=== PATIENT | female | born 1955 | race Caucasian/White ===

== ENCOUNTER 2019-05-23 13:01 | Outpatient (CLI) | payer MEDICARE, OTHER, SELFPAY ==
[2019-05-23 13:21] LABS: Basophils Absolute Auto 0.05 K/mm3 (0.00-0.10); Basophils Percent Auto 0.7 % (0.0-1.0); Eosinophils Absolute Auto 0.02 K/mm3 (0.02-0.50); Eosinophils Percent Auto 0.3 % (1.0-6.0); Hematocrit 48.5 % (35.0-42.0); Immature Granulocyte Absolute 0.03 K/mm3 (0.00-0.00); Immature Granulocyte Percent A 0.4 % (0.0-0.0); Lymphocytes Absolute Auto 0.83 K/mm3 (1.10-4.50); Lymphocytes Percent Auto 12.2 % (18.0-42.0); Mean Corpuscular Hemoglobin 31.7 pg (27.0-31.0); Mean Platelet Volume 10.2 fl (9.2-11.8); Monocytes Absolute Auto 0.94 K/mm3 (0.10-0.90); Monocytes Percent Auto 13.8 % (2.0-11.0); Neutrophils Absolute Auto 4.9 K/mm3 (1.7-7.2); Neutrophils Percent Auto 72.6 % (50.0-70.0); Platelet Count Result 191 K/mm3 (150-420); Red Blood Count 5.05 M/mm3 (4.20-5.40); Red Cell Distribution Width 12.4 % (11.6-14.4); White Blood Count 6.8 K/mm3 (4.8-10.8)
[2019-05-23 13:39] LABS: Influenza Control Valid (Valid)
== END 2019-05-23 13:02 | disposition home or self-care (01) ==
LOC: CHSLAB 13:09
PROVIDERS: PCP Internal Medicine; Visit Provider Internal Medicine
DX: R05 Cough (principal); R50.9 Fever, unspecified
CPT/HCPCS: 36415; 85025; 87804

== ENCOUNTER 2019-05-30 14:47 | Outpatient (CLI) | payer MEDICARE, OTHER, SELFPAY ==
--- NOTE | ~2019-05-30 | XR_ITS ---
EXAMINATION: XR chest 2V 05/30/2019 15:18 INDICATION: Shortness of breath and chest pain PROCEDURE: 2 view chest COMPARISON: Comparison to multiple prior studies sequentially, with oldest reviewed study dated 11/28. FINDINGS: The lungs are clear. The cardiomediastinal silhouette is within normal limits. There are no pleural effusions. There is no pneumothorax suspected. IMPRESSION: 1: NO ACUTE CARDIOPULMONARY DISEASE. Reviewed, dictated and finalized at location A.
== END 2019-05-30 14:48 | disposition home or self-care (01) ==
LOC: CHSIMG 14:51
PROVIDERS: PCP Internal Medicine; Visit Provider Internal Medicine
DX: R06.02 Shortness of breath (principal); R07.9 Chest pain, unspecified
CPT/HCPCS: 71046

== ENCOUNTER 2019-10-20 09:56 | Outpatient (NON) | payer MEDICARE, OTHER, SELFPAY ==
[2019-10-20 20:40] LABS: SARS-CoV-2 RNA PCR Negative
== END 2019-10-20 09:57 ==
PROVIDERS: PCP Internal Medicine; Visit Provider Internal Medicine
DX: Z20.828 Contact with and (suspected) exposure to other viral communicable diseases (principal)
CPT/HCPCS: 87635; C9803; U0003

== ENCOUNTER 2019-11-28 08:42 | Outpatient (CLI) | payer MEDICARE, SELFPAY ==
[2019-11-28 08:56] LABS: Basophils Absolute Auto 0.03 K/mm3 (0.00-0.10); Basophils Percent Auto 0.5 % (0.0-1.0); Eosinophils Percent Auto 1.8 % (1.0-6.0); Hematocrit 44.7 % (35.0-42.0); Hemoglobin 14.8 g/dL (11.7-13.8); Immature Granulocyte Absolute 0.01 K/mm3 (0.00-0.00); Immature Granulocyte Percent A 0.2 % (0.0-0.0); Lymphocytes Absolute Auto 1.97 K/mm3 (1.10-4.50); Lymphocytes Percent Auto 34.9 % (18.0-42.0); Mean Corpuscular HGB Conc 33.1 g/dL (32.0-36.0); Mean Corpuscular Hemoglobin 31.3 pg (27.0-31.0); Mean Corpuscular Volume 94.5 fL (78.0-102.0); Mean Platelet Volume 9.8 fl (9.2-11.8); Monocytes Absolute Auto 0.52 K/mm3 (0.10-0.90); Monocytes Percent Auto 9.2 % (2.0-11.0); Neutrophils Percent Auto 53.4 % (50.0-70.0); Platelet Count Result 248 K/mm3 (150-420); Red Blood Count 4.73 M/mm3 (4.20-5.40); Red Cell Distribution Width 12.1 % (11.6-14.4); White Blood Count 5.7 K/mm3 (4.8-10.8)
[2019-11-28 09:04] LABS: Add Urine Microscopic? YES; Appearance Urine Clear (Clear); Bilirubin Urine Negative (Negative); Blood Urine Negative (Negative); Color Urine Yellow (Yellow); Glucose Urine UA Negative (Negative); Ketones Urine Negative (Negative); Leukocyte Esterase Ur 2+ LEU/UL (Negative); Nitrate Urine Negative (Negative); Protein Urine Negative (Negative); Specific Grav Ur 1.015 (1.010-1.020); Urobilinogen Urine 0.2 mg/dL (0.2-1.0); pH Urine 8.5 (5.0-8.0)
[2019-11-28 09:08] LABS: RBC Urine 0-2 /hpf (0-2); Squamous Epithelial Cell Urine Few /hpf (Few)
[2019-11-28 09:09] LABS: Bacteria Urine Trace /hpf
[2019-11-28 09:11] LABS: D Dimer 0.33 mg/L (0.19-0.50)
[2019-11-28 09:26] LABS: BNP 17.5 pg/mL (0-100)
[2019-11-28 09:46] LABS: Alanine Aminotransferase 40 U/L (14-59); Albumin Level 3.6 g/dL (3.4-5.0); Alkaline Phosphatase 100 U/L (46-116); Anion Gap 7 mmol/L (8-16); Aspartate Amino Transferase 22 U/L (15-37); Bilirubin,Total 0.6 mg/dL (0.00-1.00); Blood Urea Nitrogen 15 mg/dL (7-18); Calcium 9.4 mg/dL (8.5-10.1); Carbon Dioxide 32 mmol/L (21-32); Chloride 102 mmol/L (98-108); Estimated Glomerular Filt Rate > 60; Glucose 103 mg/dL (70-99); Osmolality Calculated 292 mOsm/kg (285-295); Potassium 4.4 mmol/L (3.5-5.1); Sodium 141 mmol/L (136-145); Total Protein 7.4 g/dL (6.4-8.2)
[2019-11-28 09:48] LABS: CRP < 0.2 mg/dL (0.0-0.9)
== END 2019-11-28 08:43 | disposition home or self-care (01) ==
LOC: CHSLAB 08:46
PROVIDERS: PCP Internal Medicine; Visit Provider Internal Medicine
DX: U07.1 COVID-19 (principal); R06.00 Dyspnea, unspecified; R53.83 Other fatigue; R82.90 Unspecified abnormal findings in urine
CPT/HCPCS: 36415; 80053; 81001; 83880; 84443; 85025; 85380; 86140; 87086

== ENCOUNTER 2020-09-07 15:19 | Emergency (ER) | payer MEDICARE, OTHER, SELFPAY ==
--- NOTE | ~2020-09-07 | XR_ITS ---
EXAMINATION: XR chest 2V EXAM DATE: 09/07/2020 16:25 INDICATION: Shortness of breath, symptoms 3 days. TECHNIQUE: Frontal and lateral projections of the chest obtained and reviewed. Comparison is made to prior examination from 05/30/2019. FINDINGS: The lungs are clear. There are no pleural effusions. The cardiomediastinal silhouette is within normal limits. There is no pneumothorax suspected. The bones and soft tissues are unremarkab le. IMPRESSION: No acute cardiopulmonary findings. Reviewed, dictated and finalized at location A.
[2020-09-07 15:30] VITALS: BP 163/80; PULSE 76; RESP 18; TEMP 36.6; O2SAT 99
--- NOTE | 2020-09-07 15:55 | ECG_ITS ---
Measurements Intervals [place] Rate: 75 P: 57 OK: 145 QRS: -17 QRSD: 99 T: 56 QT: 377 QTc: 422 Interpretive Statements SINUS RHYTHM POSSIBLE LEFT ATRIAL ENLARGEMENT INCOMPLETE RIGHT BUNDLE BRANCH BLOCK DELAYED PRECORDIAL R/S TRANSITION BASELINE WANDER- V4-V6 BORDERLINE ECG Electronically Signed On 09-07-2020 17:06:10 CDT by Phan Mcelroy D.O.
[2020-09-07 16:00] VITALS: BP 147/75; PULSE 68; RESP 16; O2SAT 100
--- NOTE | 2020-09-07 16:01 | ED.SOB ---
HPI - SOB/Dyspnea General Chief Complaint: Shortness of Breath/Dyspnea Stated Complaint: chest pain, trouble breathing Time Seen by Provider: 09/07/20 16:02 Source: patient and family Mode of arrival: ambulatory Limitations: no limitations History of Present Illness HPI Narrative: This nice lady has a history of myasthenia, and presents with increasing weakness. She was outside the house on Thursday, which is unusual for her. She started getting acutely weaker after she was outside about 5 minutes. She went back into the house, and improved somewhat over . She continues to feel weak today, and comes in due to increasing weakness to be evaluated. Weakness appears to likely be at least moderately severe and ongoing since Thursday. Nothing has really helped decrease the weakness much. MD elicited complaint: shortness of breath Pertinent past history: asthma Onset (ago): day(s) Context: recent illness Timing: constant Severity: moderate Exacerbating factors: exertion Relieving factors: rest Known history of: asthma and other (chest heaviness) Related Data Home Medications Medication Instructions Recorded Confirmed duloxetine 60 mg PO DAILY 09/07/20 09/07/20 fluticasone furoate-vilanterol 1 inh INHALATION DAILY 09/07/20 09/07/20 [Breo Ellipta] fluticasone propionate [Flovent 1 puff INHALATION PRN 09/07/20 09/07/20 HFA] montelukast 10 mg PO DAILY 09/07/20 09/07/20 pyridostigmine bromide 180 mg PO DAILY 09/07/20 09/07/20 Allergies Allergy/AdvReac Type Severity Reaction Status Date / Time codeine Allergy Intermediate Verified 05/02/13 10:54 albuterol Allergy Mild Verified 05/02/13 10:55 Sulfa (Sulfonamide Allergy Mild Unverified 10/15/16 16:38 Antibiotics) nortriptyline Allergy Unknown Verified 11/13/11 09:45 Penicillins Allergy Unknown Verified 11/13/11 09:45 ORANGES Allergy Unknown Uncoded 10/15/16 16:38 Review of Systems Constitutional: Constitutional: Reports fatigue and Reports weakness Eyes: Eyes: Reports no additional eye complaints ENT: Reports system reviewed and no additional complaints, except as documented Cardiovascular: Cardiovascular: Reports as per HPI and Reports no additional cardiovascular complaints Respiratory: Respiratory: Reports chest congestion Comments: chest heaviness Gastrointestinal: Gastrointestinal: Reports no additional gastrointestinal complaints Genitourinary: Genitourinary: Reports no additional female genitourinary complaints Musculoskeletal: Musculoskeletal: Reports no additional musculoskeletal complaints Integumentary/Breasts: Skin/Breast: Reports system reviewed and no additional complaints, except as docu Neurologic: Reports weakness Psychiatric: Psychiatric: Reports no additional psychiatric complaints Endocrine: Endocrine: Reports no additional endocrine complaints Hematologic/Lymphatic: Hematologic/Lymphatic: Reports no additional hematologic/lymphatic complaints Allergic/Immunologic: Allergic/Immunologic: Reports no additional allergic/immunologic complaints [facility] Past Medical History Medical History (Updated 09/07/20 @ 18:14 by Michael Man MD) Allergic rhinitis Asthma Myasthenia gravis Sleep apnea Vitamin D deficiency Family History Family History (Updated 10/05/15 @ 23:19 by DOCTOR UNKNOWN) Mother Family history of diabetes mellitus in first degree relative, Onset Age: 55 Father Malignant neoplasm of prostate Patient's father is Social History Social History (Updated 09/07/20 @ 16:52 by Michael Man MD) Smoking status: Never smoker Alcohol intake: never Living arrangements: with family Gender identity (if verbalized by the patient): Female Sexual Orientation (if Verbalized by the Patient): Straight or Heterosexual Exam Const: General: no acute distress and alert Orientation/consciousness: patient oriented x3 HENMT: Head: normal to inspection Ears: external e
[2020-09-07 16:50] LABS: Basophils Absolute Auto 0.06 K/mm3 (0.00-0.10); Basophils Percent Auto 0.7 % (0.0-1.0); Eosinophils Absolute Auto 0.03 K/mm3 (0.02-0.50); Eosinophils Percent Auto 0.4 % (1.0-6.0); Hematocrit 46.1 % (35.0-42.0); Hemoglobin 15.5 g/dL (11.7-13.8); Immature Granulocyte Absolute 0.03 K/mm3 (0.00-0.00); Immature Granulocyte Percent A 0.4 % (0.0-0.0); Lymphocytes Absolute Auto 2.13 K/mm3 (1.10-4.50); Lymphocytes Percent Auto 25.3 % (18.0-42.0); Mean Corpuscular HGB Conc 33.6 g/dL (32.0-36.0); Mean Corpuscular Hemoglobin 31.3 pg (27.0-31.0); Mean Corpuscular Volume 92.9 fL (78.0-102.0); Mean Platelet Volume 11.8 fl (9.2-11.8); Monocytes Absolute Auto 0.56 K/mm3 (0.10-0.90); Monocytes Percent Auto 6.7 % (2.0-11.0); Neutrophils Absolute Auto 5.6 K/mm3 (1.7-7.2); Neutrophils Percent Auto 66.5 % (50.0-70.0); Platelet Count Result 183 K/mm3 (150-420); Red Blood Count 4.96 M/mm3 (4.20-5.40); Red Cell Distribution Width 11.9 % (11.6-14.4); White Blood Count 8.4 K/mm3 (4.8-10.8)
[2020-09-07 16:50] LABS: Add Urine Microscopic? NO; Appearance Urine Clear (Clear); Bilirubin Urine Negative (Negative); Blood Urine Negative (Negative); Color Urine Light Yellow (Yellow); Glucose Urine UA Negative (Negative); Ketones Urine Negative (Negative); Leukocyte Esterase Ur Negative LEU/UL (Negative); Nitrate Urine Negative (Negative); Protein Urine Negative (Negative); Specific Grav Ur <= 1.005 (1.010-1.020); Urobilinogen Urine 0.2 mg/dL (0.2-1.0)
[2020-09-07 17:09] LABS: Lactic Acid Reflex 0.9 mmol/L (0.4-2.0)
[2020-09-07 17:15] LABS: Alanine Aminotransferase 35 U/L (14-59); Albumin Level 4.4 g/dL (3.4-5.0); Alkaline Phosphatase 112 U/L (46-116); Anion Gap 13 mmol/L (8-16); Aspartate Amino Transferase 25 U/L (15-37); Bilirubin,Total 0.4 mg/dL (0.00-1.00); Blood Urea Nitrogen 15 mg/dL (7-18); Calcium 9.9 mg/dL (8.5-10.1); Carbon Dioxide 27 mmol/L (21-32); Chloride 97 mmol/L (98-108); Estimated Glomerular Filt Rate > 60; Glucose 97 mg/dL (70-99); NT Pro B Type Natriuretic Pept 74 pg/mL (0-125); Osmolality Calculated 284 mOsm/kg (285-295); Potassium 3.9 mmol/L (3.5-5.1); Sodium 137 mmol/L (136-145); Total Protein 8.6 g/dL (6.4-8.2); Troponin I 5.5 ng/L (0.00-60.4)
[2020-09-07 17:16] LABS: Magnesium 2.2 mg/dL (1.8-2.4)
[2020-09-07 18:00] VITALS: BP 147/80; PULSE 81; RESP 17; O2SAT 100
--- NOTE | 2020-09-07 18:20 | PC.NURSE ---
formerly [facility] contacted at [phone] alcantara, formerly [facility], accepts patient. awaiting bed placement.
[2020-09-07 18:36] LABS: SARS-CoV-2 Ag Negative (Negative)
[2020-09-07 21:40] VITALS: BP 143/73; PULSE 71; RESP 16; O2SAT 100
== END 2020-09-07 21:50 | disposition short-term general hospital (02) ==
PROVIDERS: Emergency Provider Emergency Medicine; PCP Internal Medicine
DX: G70.00 Myasthenia gravis without (acute) exacerbation (principal); R06.02 Shortness of breath; Z20.822 Contact with and (suspected) exposure to COVID-19
CPT/HCPCS: 36415; 71046; 80053; 81003; 83605; 83735; 83880; 84484; 85025; 85380; 87040; 87426; 93005; 99285; C9803

== ENCOUNTER 2020-11-23 12:43 | Outpatient (CLI) | payer MEDICARE, OTHER, SELFPAY ==
--- NOTE | ~2020-11-23 | US_ITS ---
EXAMINATION: US thyroid EXAM DATE: 11/23/2020 13:10 INDICATION: Goiter. TECHNIQUE: Multiple grayscale and Doppler images of the thyroid were obtained (by a technologist who performed the scan) and subsequently reviewed. Individual nodules and recommendations may be reporte d in accordance with TI-RADS system as designated by the 2017 ACR White Paper TI-RADS committee. The re is no prior study for comparison. FINDINGS: Right there are lobe measures 4.5 x 1.4 x 1.1 cm, the left measuring 4.0 x 1.4 x 1.1 cm. Relatively h omogeneous thyroid echogenicity. There are several small thyroid nodules largest is category TR 4 dana suring 5 x 5 x 6 mm. IMPRESSION: Small thyroid nodules. Return to clinical follow-up and if additional palpable abnormal ity develops a repeat ultrasound can be obtained. Reviewed, dictated and finalized at location B. IMPRESSION: Small thyroid nodules. Return to clinical follow-up and if additi onal palpable abnormality develops a repeat ultrasound can be obtained.
== END 2020-11-23 12:44 | disposition home or self-care (01) ==
LOC: CHSIMG 12:44
PROVIDERS: PCP Internal Medicine; Visit Provider Internal Medicine
DX: E04.9 Nontoxic goiter, unspecified (principal)
CPT/HCPCS: 76536

== ENCOUNTER 2021-03-21 16:56 | Outpatient (CLI) | payer MEDICARE, OTHER, SELFPAY ==
--- NOTE | ~2021-03-21 | XR_ITS ---
XR chest 2V DATE: 03/21/2021 17:32 INDICATION: Shortness of breath and fever for 3 days TECHNIQUE: 2 views COMPARISON: 09/07/2020 PA and lateral chest FINDINGS: Status post cholecystectomy. Normal heart size. No hilar or mediastinal enlargement. No pulmonary infiltrate or consolidation, pleural effusion or pulmonary vascular congestion or pneumo thorax. IMPRESSION: No active cardiopulmonary disease Reviewed, dictated and finalized at location J. K CO[facility]
[2021-03-21 18:08] LABS: Influenza Control Valid (Valid)
== END 2021-03-21 16:57 | disposition home or self-care (01) ==
LOC: CHSLAB 17:00
PROVIDERS: PCP Internal Medicine; Visit Provider Nurse Practitioner Family
DX: J06.9 Acute upper respiratory infection, unspecified (principal); R50.9 Fever, unspecified
CPT/HCPCS: 71046; 87804

== ENCOUNTER 2021-03-22 14:09 | Outpatient (CLI) | payer MEDICARE, OTHER, SELFPAY ==
[2021-03-22] MEDS: FAMOTIDINE 20 MG TABLET PO (14:30)
[2021-03-22] MEDS: diphenhydrAMINE HCl CAP 25 MG CAPSULE PO (14:30)
[2021-03-22 14:57] VITALS: BMI 26.5
[2021-03-22 14:59] VITALS: BP 121/70; PULSE 68; RESP 14; TEMP 36.6; O2SAT 96
[2021-03-22] MEDS: ACETAMINOPHEN 325 MG TABLET 650 MG PO (15:03)
--- NOTE | 2021-03-22 15:04 | PC.NURSE ---
Patient here for Bamianivimab/Etesevimab IV infusion r/t being positive for covid and meeting high criteria risk. Education on medication given. No concerns voiced. PO pre meds and IV Bamianivimab/Etesevimab administered see MAY.
[2021-03-22 15:15] VITALS: BP 118/72; PULSE 70; RESP 14; TEMP 36.6; O2SAT 99
--- NOTE | 2021-03-22 15:16 | PC.NURSE ---
Infusion completed. Patient c/o scratchy throat and side lip numbness. Will observe for awhile. Drinking water well. No other complaints. VSS.
--- NOTE | 2021-03-22 15:37 | PC.NURSE ---
Patient reports scratchy throat and tingle in side mouth/lip went away. Patient states, I feel pretty good now. I'm ready to go. Safe exit of hospital. Son driving her home.
== END 2021-03-22 14:10 | disposition home or self-care (01) ==
LOC: CHSTREATRM 14:13
PROVIDERS: PCP Internal Medicine; Visit Provider Nurse Practitioner Family
DX: U07.1 COVID-19 (principal)
CPT/HCPCS: A9270; M0245; Q0245

== ENCOUNTER 2021-12-24 10:03 | Outpatient (CLI) | payer MEDICARE, SELFPAY ==
[2021-12-24 10:23] LABS: Basophils Absolute Auto 0.05 K/mm3 (0.00-0.10); Basophils Percent Auto 0.7 % (0.0-1.0); Eosinophils Absolute Auto 0.07 K/mm3 (0.02-0.50); Hematocrit 42.7 % (35.0-42.0); Hemoglobin 14.3 g/dL (11.7-13.8); Immature Granulocyte Absolute 0.03 K/mm3 (0.00-0.00); Immature Granulocyte Percent A 0.4 % (0.0-0.0); Lymphocytes Absolute Auto 2.07 K/mm3 (1.10-4.50); Lymphocytes Percent Auto 28.9 % (18.0-42.0); Mean Corpuscular HGB Conc 33.5 g/dL (32.0-36.0); Mean Corpuscular Hemoglobin 31.4 pg (27.0-31.0); Mean Corpuscular Volume 93.8 fL (78.0-102.0); Mean Platelet Volume 9.7 fl (9.2-11.8); Monocytes Absolute Auto 0.64 K/mm3 (0.10-0.90); Monocytes Percent Auto 8.9 % (2.0-11.0); Neutrophils Absolute Auto 4.3 K/mm3 (1.7-7.2); Neutrophils Percent Auto 60.1 % (50.0-70.0); Platelet Count Result 226 K/mm3 (150-420); Red Blood Count 4.55 M/mm3 (4.20-5.40); Red Cell Distribution Width 12.1 % (11.6-14.4); White Blood Count 7.2 K/mm3 (4.8-10.8)
[2021-12-24 10:39] LABS: Appearance Urine Clear (Clear); Bilirubin Urine Negative (Negative); Blood Urine Negative (Negative); Glucose Urine UA Negative (Negative); Ketones Urine Negative (Negative); Leukocyte Esterase Ur 1+ LEU/UL (Negative); Nitrate Urine Negative (Negative); Protein Urine Negative (Negative); Specific Grav Ur <= 1.005 (1.010-1.020); Urobilinogen Urine 0.2 mg/dL (0.2-1.0); pH Urine 6.5 (5.0-8.0)
[2021-12-24 10:46] LABS: Add Urine Microscopic? YES; Color Urine Light Yellow (Yellow); RBC Urine None seen /hpf (0-2); WBC Urine 0-3 /hpf (0-3)
[2021-12-24 10:47] LABS: Bacteria Urine Trace /hpf; Squamous Epithelial Cell Urine None seen /hpf (Few)
[2021-12-24 11:29] LABS: Alanine Aminotransferase 35 U/L (14-59); Albumin Level 3.9 g/dL (3.4-5.0); Alkaline Phosphatase 96 U/L (46-116); Anion Gap 7 mmol/L (8-16); Aspartate Amino Transferase 23 U/L (15-37); Bilirubin,Total 0.6 mg/dL (0.00-1.00); Blood Urea Nitrogen 15 mg/dL (7-18); Calcium 9.6 mg/dL (8.5-10.1); Carbon Dioxide 31 mmol/L (21-32); Chloride 101 mmol/L (98-108); Estimated Glomerular Filt Rate > 60; Glucose 99 mg/dL (70-99); Magnesium 2.2 mg/dL (1.8-2.4); NT Pro B Type Natriuretic Pept 59 pg/mL (0-125); Osmolality Calculated 288 mOsm/kg (285-295); Phosphorus 3.7 mg/dL (2.6-4.7); Potassium 4.3 mmol/L (3.5-5.1); Sodium 139 mmol/L (136-145); Thyroid Stimulating Hormone 2.27 uIU/mL (0.36-3.74); Total Protein 7.3 g/dL (6.4-8.2)
== END 2021-12-24 10:04 | disposition home or self-care (01) ==
LOC: CHSLAB 10:05
PROVIDERS: PCP Internal Medicine; Visit Provider Internal Medicine
DX: R00.2 Palpitations (principal); R55 Syncope and collapse; R01.1 Cardiac murmur, unspecified; R06.00 Dyspnea, unspecified; R82.90 Unspecified abnormal findings in urine
CPT/HCPCS: 36415; 80053; 81001; 83735; 83880; 84100; 84443; 85025; 87086; 87088

== ENCOUNTER 2022-01-27 14:34 | Outpatient (CLI) | payer MEDICARE, OTHER, SELFPAY ==
--- NOTE | 2022-01-27 01:00 | ECHO_ITS ---
Patient Info Name: Sonal Arrington Age: 66 years : 1955 Gender: Female Ht: 63 in Wt: 150 lbs BSA: 1.76 m2 HR: 80 bpm BP: 157 / 76 mmHg Heart Rhythm: Sinus Rhythm Technical Quality: Fair Exam Date: 01/27/2022 3:29 PM Exam Location: [facility] [place] Patient Status: Outpatient Admit Date: 01/27/2022 Staff Ordering Physician: Wm Bear MD Deployment Technician: Isela Smith RDCS Attending Provider: Wm Bear MD Exam Type: CA echo doppler color flow Study Info Indications - presyncope R01.1 - Cardiac murmur, unspecified R00.2 - Palpitations Complete two-dimensional, color flow and Doppler transthoracic echocardiogram is performed. Summary 1. Complete two-dimensional, color flow and Doppler transthoracic echocardiogram is performed. 2. Left ventricular chamber dimension is normal. 3. Left ventricular systolic function is hyperdynamic, estimated at >70%. 4. The left ventricular diastolic function is grade II diastolic dysfunction. 5. E/e' 12 is mildly elevated. 6. There is trace mitral valve regurgitation. 7. There is trace tricuspid valve regurgitation. 8. Mild pulmonary hypertension, estimated pulmonary arterial systolic pressure is 44 mmHg. 9. There is trace pulmonic regurgitation. Left Ventricle E/e' 12 is mildly elevated. Left ventricular chamber dimension is normal. Left ventricular systolic function is hyperdynamic, estimated at >70%. The left ventricular diastolic function is grade II diastolic dysfunction. Right Ventricle Right ventricular systolic function is normal and with normal TAPSE 2.1 cm. Right ventricular chamber dimension is normal. Left Atria Left atrial chamber dimension is normal. Right Atria Right atrial chamber dimension is normal. Aortic Valve The aortic valve is trileaflet. There is no aortic valve stenosis. There is no aortic valve regurgitation. Pulmonic Valve There is trace pulmonic regurgitation. Mitral Valve There is no mitral valve stenosis. There is trace mitral valve regurgitation. Tricuspid Valve There is trace tricuspid valve regurgitation. Mild pulmonary hypertension, estimated pulmonary arterial systolic pressure is 44 mmHg. Pericardium/Pleural There is no pericardial effusion. Inferior Vena Cava Normal inferior vena cava with >50% collapse upon inspiration consistent with normal right atrial pressure, 5 mmHg. Aorta The aortic root size at the sinus of Valsalva is normal. Left Ventricular Outflow Tract Name Value Normal LVOT 2D LVOT Diameter 2.0 cm LVOT Doppler LVOT Peak Velocity 144 cm/s LVOT Peak Gradient 8 mmHg LVOT Mean Gradient 4 mmHg LVOT VTI 27 cm LVOT VTI/AV VTI Ratio 0.8 LVOT Stroke Volume 87 ml Pulmonic Valve Name Value Normal RVOT Doppler ------
== END 2022-01-27 14:35 | disposition home or self-care (01) ==
PROVIDERS: PCP Internal Medicine; Visit Provider Internal Medicine
DX: R00.2 Palpitations (principal); R55 Syncope and collapse; R01.1 Cardiac murmur, unspecified
CPT/HCPCS: 93306

== ENCOUNTER 2022-01-28 11:19 | Outpatient (CLI) | payer MEDICARE, OTHER, SELFPAY ==
--- NOTE | 2022-02-28 11:39 | WPDHOLTEREM ---
Holter/Event Monitor Holter/Event Monitor Date of procedure: 01/28/22 Holter/Event Procedure: Event Monitor Indications: Palpitations Conclusion: 1. 28 days event monitor between 01/28/22-02/26/22. There are 323 available transmissions for analysis. 2. Underlying rhythm is sinus rhythm with sinus arrhythmia. HR range 50-131 bpm; average HR 68 bpm. 3. There are occasional premature supraventricular complexes with total burden of <1%. No supraventricular tachycardia. 4. There are occasional premature ventricular complexes with total burden of 1%. No ventricular tachycardia. 5. No significant pauses greater than 2 seconds. 6. Patient reports 313 episodes of symptoms of chest pain, shortness of breath, skipped beat, heart racing, lightheadedness, symptoms other than listed which demonstrate sinus rhythm HR range 63-131 bpm and 3 episodes with PAC's.
== END 2022-01-28 11:20 | disposition home or self-care (01) ==
LOC: CHSCARD 11:21
PROVIDERS: PCP Internal Medicine; Visit Provider Internal Medicine
DX: R00.2 Palpitations (principal); R55 Syncope and collapse; R01.1 Cardiac murmur, unspecified
CPT/HCPCS: 93270

== ENCOUNTER 2022-02-24 13:36 | Emergency (ER) | payer MEDICARE, OTHER, SELFPAY ==
--- NOTE | ~2022-02-24 | XR_ITS ---
Clinical Indication: Chest pain PA and lateral views of the chest: Comparison: 03/21/2021 Findings: The lungs are clear, without evidence of focal consolidation or pleural effusion. Cardiome diastinal silhouette is within normal limits. Bones and soft tissues are unremarkable. Impression: Normal chest. Reviewed, dictated and finalized at location . ERCIAL HOUSEKEEPER Impression: Normal chest.
--- NOTE | 2022-02-24 13:40 | ECG_ITS ---
Measurements Intervals [place] Rate: 92 P: 56 MT: 124 QRS: -32 QRSD: 94 T: 66 QT: 345 QTc: 428 Interpretive Statements SINUS RHYTHM POSSIBLE LEFT ATRIAL ENLARGEMENT [-0.1mV P-WAVE IN V1/V2] LEFT AXIS DEVIATION [QRS AXIS < -30] NONSPECIFIC ST SEGMENT ABNORMALITY COMPARED WITH 09/07/2020, MODEST ST SEGMENT DEPRESSION IS SEEN Electronically Signed On 02-24-2022 17:24:52 GENERAL SUPERVISOR by Chauncey Fabian M.D.
[2022-02-24 13:44] VITALS: BP 152/77; PULSE 87; RESP 16; TEMP 36.3; O2SAT 100
[2022-02-24 13:57] LABS: Basophils Absolute Auto 0.05 K/mm3 (0.00-0.10); Basophils Percent Auto 0.6 % (0.0-1.0); Eosinophils Absolute Auto 0.05 K/mm3 (0.02-0.50); Eosinophils Percent Auto 0.6 % (1.0-6.0); Hematocrit 40.3 % (35.0-42.0); Hemoglobin 13.6 g/dL (11.7-13.8); Immature Granulocyte Absolute 0.03 K/mm3 (0.00-0.00); Immature Granulocyte Percent A 0.3 % (0.0-0.0); Lymphocytes Absolute Auto 2.63 K/mm3 (1.10-4.50); Lymphocytes Percent Auto 30.3 % (18.0-42.0); Mean Corpuscular HGB Conc 33.7 g/dL (32.0-36.0); Mean Corpuscular Hemoglobin 31.2 pg (27.0-31.0); Mean Corpuscular Volume 92.4 fL (78.0-102.0); Mean Platelet Volume 9.8 fl (9.2-11.8); Monocytes Absolute Auto 0.74 K/mm3 (0.10-0.90); Monocytes Percent Auto 8.5 % (2.0-11.0); Neutrophils Absolute Auto 5.2 K/mm3 (1.7-7.2); Neutrophils Percent Auto 59.7 % (50.0-70.0); Platelet Count Result 239 K/mm3 (150-420); Red Blood Count 4.36 M/mm3 (4.20-5.40); Red Cell Distribution Width 11.9 % (11.6-14.4); White Blood Count 8.7 K/mm3 (4.8-10.8)
[2022-02-24 14:00] VITALS: O2SAT 100
[2022-02-24 14:11] LABS: Prothrombin Time 11.1 Seconds (9.50-12.10)
[2022-02-24 14:28] LABS: Alanine Aminotransferase 31 U/L (14-59); Albumin Level 3.7 g/dL (3.4-5.0); Alkaline Phosphatase 105 U/L (46-116); Anion Gap 7 mmol/L (8-16); Aspartate Amino Transferase 20 U/L (15-37); Bilirubin,Total 0.4 mg/dL (0.00-1.00); Blood Urea Nitrogen 16 mg/dL (7-18); Calcium 9.3 mg/dL (8.5-10.1); Carbon Dioxide 29 mmol/L (21-32); Chloride 101 mmol/L (98-108); Estimated Glomerular Filt Rate > 60; Glucose 156 mg/dL (70-99); Osmolality Calculated 288 mOsm/kg (285-295); Potassium 3.6 mmol/L (3.5-5.1); Sodium 137 mmol/L (136-145); Total Protein 7.5 g/dL (6.4-8.2)
[2022-02-24] MEDS: ASPIRIN 81 MG CHEWABLE TABLET 324 MG PO (15:00)
[2022-02-24 15:10] LABS: NT Pro B Type Natriuretic Pept 70 pg/mL (0-125)
[2022-02-24 15:24] LABS: D Dimer 0.23 mg/L (0.19-0.50)
[2022-02-24 15:40] VITALS: BP 146/88; PULSE 75; RESP 16; TEMP 36.4; O2SAT 98
--- NOTE | 2022-02-24 15:40 | ED.CHESTPAIN ---
HPI - Chest Pain General Chief Complaint: Chest Pain Stated Complaint: chest pain Time Seen by Provider: 02/24/22 13:36 History of Present Illness MD complaint: chest pain Onset (ago): day(s) (6) Timing of current episode: episodic Prior episodes: Yes Onset: during rest Pain location: left chest Pain radiation: none Severity: moderate Quality: sharp Relieving factors: nothing Exacerbating factors: nothing Associated symptoms: nausea and dyspnea Treatment prior to arrival: none Risk Factors Coronary artery disease risk factors: diabetes, smoking history, hyperlipidemia and hypertension Related Data Home Medications Medication Instructions Recorded Confirmed duloxetine 60 mg capsule,delayed 60 mg PO DAILY 09/07/20 02/24/22 release fluticasone furoate 200 1 inh inhalation DAILY 09/07/20 02/24/22 mcg-vilanterol 25 mcg/dose inhalation powder (Breo Ellipta) fluticasone propionate 110 1 puff inhalation PRN 09/07/20 02/24/22 mcg/actuation HFA aerosol inhaler (Flovent HFA) montelukast 10 mg tablet 10 mg PO DAILY 09/07/20 02/24/22 pyridostigmine bromide 180 mg 180 mg PO DAILY 09/07/20 02/24/22 tablet,extended release Allergies Allergy/AdvReac Type Severity Reaction Status Date / Time codeine Allergy Intermediate Anaphylaxis Verified 02/24/22 14:17 albuterol Allergy Mild Palpitation Verified 02/24/22 14:17 s Sulfa (Sulfonamide Allergy Mild Anaphylactic Unverified 02/24/22 14:17 Antibiotics) Shock nortriptyline Allergy Unknown Confusion Verified 02/24/22 14:17 Penicillins Allergy Unknown Anaphylactic Verified 02/24/22 14:17 Shock ORANGES Allergy Unknown Anaphylactic Uncoded 02/24/22 14:17 Shock Review of Systems Review of Systems: All systems reviewed & are unremarkable except as noted in HPI and below PMFSH Past Medical History Medical History (Updated 02/24/22 @ 15:41 by Michael Guzman MD) Allergic rhinitis Asthma Myasthenia gravis Sleep apnea Vitamin D deficiency Family History Family History (Updated 10/05/15 @ 23:19 by DOCTOR UNKNOWN) Mother Family history of diabetes mellitus in first degree relative, Onset Age: 55 Father Malignant neoplasm of prostate Patient's father is Social History Social History Smoking status: Never smoker Alcohol intake: never Gender identity (if verbalized by the patient): Female Sexual Orientation (if Verbalized by the Patient): Straight or Heterosexual Exam Const: General: healthy appearing, no acute distress and alert Nutritional Appearance: well nourished Orientation/consciousness: patient oriented x3 Limitations: no limitations HENMT: Head: normal to inspection Ears: external ears normal Face/Nose/Sinus: Normal external nose present Face and sinus: normal facial exam Mouth: Yes moist mucous membranes Eyes: Conjunctivae: conjunctivae normal Pupils: Equal, round and reactive pupils present EOM: EOMs intact bilaterally Neck: Neck: normal visual inspection Resp: Effort & Inspection: normal respiratory effort Auscultation: clear to auscultation bilaterally Cardio: Rate: regular rate Rhythm: regular rhythm GI: GI Palp: Yes Soft to palpation and No Tenderness to palpation present (GI) Auscultation: normal bowel sounds Back/Spine/Pelvis: Cervical Spine: cervical ROM normal Thoracic/Lumbar Spine: thoraco-lumbar ROM normal Skin: General skin exam: normal color Rashes: no rashes Neuro: General: patient oriented x3, moves all extremities, no focal motor deficits and CN's II-XI intact bilaterally Speech: normal speech Gait exam (Neuro): Normal gait present Extrem: General: normal to inspection and no clubbing, cyanosis or edema Psych: Mental Status: mental status grossly normal Affect: normal affect Attitude: cooperative Course Vital Signs Vital signs: Vital Signs Temperature 36.3 C L 02/24/22 13:44 Pulse Rate 87 02/24
== END 2022-02-24 15:40 | disposition home or self-care (01) ==
PROVIDERS: Emergency Provider Emergency Medicine; PCP Internal Medicine
DX: R07.89 Other chest pain (principal); R06.00 Dyspnea, unspecified
CPT/HCPCS: 36415; 71046; 80053; 83880; 84484; 85025; 85380; 85610; 93005; 99284; A9270

== ENCOUNTER 2022-10-08 01:17 | Day surgery (SDC) | payer MEDICARE, OTHER, SELFPAY ==
[2022-10-07 16:25] VITALS: BMI 26.9
[2022-10-08] VITALS (7 sets, daily range): BP systolic 105–167; BP diastolic 77–89; PULSE 74–87; RESP 13–22; TEMP 36.8; O2SAT 95–100; BMI 27.3
--- NOTE | 2022-10-08 11:26 | WPDHPUPDATE1 ---
History and Physical Update Update Date/Time: 10/08/22 11:26 Sonal Arrington is a 67 y.o. with several medical problems who has episodes of tachycardia with heart rates running in the 180s at home. Episodes of presyncope as well. Thirty day monitor was unrevealing. She is here for an implanted loop recorder. She has a poorly defined neurological disorder which is may be a variation of myasthenia gravis, with episodes of weakness and fatigue. history and Physical has been reviewed, including an updated exam of the patient. There are NO changes in the patient's condition. Risks, benefits, and alternatives have been discussed and questions answered. Patient agrees to proceed with procedure.
--- NOTE | 2022-10-08 11:29 | WPDMODSED ---
Moderate Sedation Note-Pt Data Patient Data Diagnosis: Presyncope, tachyarrhythmia Present Complaint: Episodes of weakness and presyncope, episodes of heart rate in the 180s Procedure to be performed/Plan: Implantation of a loop recorder under local anesthesia. Possible conscious sedation. Allergies Allergy/AdvReac Type Severity Reaction Status Date / Time codeine Allergy Intermediate Anaphylaxis Verified 10/08/22 10:58 Sulfa (Sulfonamide Allergy Mild Anaphylactic Verified 10/08/22 10:58 Antibiotics) Shock nortriptyline Allergy Unknown Confusion Verified 10/08/22 10:58 Penicillins Allergy Unknown Anaphylactic Verified 10/08/22 10:58 Shock tree nut Allergy Unknown Verified 10/08/22 10:58 ORANGES Allergy Unknown Anaphylactic Uncoded 10/08/22 10:58 Shock Home Medications Medication Instructions Recorded Confirmed Type duloxetine 60 mg capsule,delayed 60 mg PO DAILY 09/07/20 10/07/22 History release fluticasone furoate 200 1 inh inhalation DAILY 09/07/20 10/07/22 History mcg-vilanterol 25 mcg/dose inhalation powder (Breo Ellipta) fluticasone propionate 110 1 puff inhalation PRN 09/07/20 10/07/22 History mcg/actuation HFA aerosol inhaler (Flovent HFA) montelukast 10 mg tablet 10 mg PO DAILY 09/07/20 10/08/22 History pyridostigmine bromide 180 mg 180 mg PO DAILY 09/07/20 10/07/22 History tablet,extended release cholecalciferol (vitamin D3) 100 100 mcg PO DAILY 10/07/22 10/07/22 History mcg (4,000 unit) tablet levalbuterol HCl 0.63 mg/3 mL 0.63 mg inhalation PRN PRN Wheezing 10/07/22 10/07/22 History solution for nebulization omeprazole 20 mg tablet,delayed 20 mg PO DAILY 10/07/22 10/08/22 History release pyridostigmine bromide 60 mg tablet 60 mg PO Q4-5H 10/07/22 10/08/22 History Sedation/Anesthesia: No previous sedation/anesthesia problems (including family history). [facility] Past Medical History Medical History Allergic rhinitis Asthma Myasthenia gravis Sleep apnea Vitamin D deficiency Family History Family History Mother Family history of diabetes mellitus in first degree relative, Onset Age: 55 Father Malignant neoplasm of prostate Patient's father is Social History Social History Smoking status: Never smoker Second hand tobacco smoke exposure: No Alcohol intake: never Substance use: never Substance use type: does not use Living arrangements: with family Gender identity (if verbalized by the patient): Female Sexual Orientation (if Verbalized by the Patient): Straight or Heterosexual Spiritual care concerns: No Mod Sed Physical Exam Physical Exam Pre Procedural Exam: Normal: Appearance, Eyes, Ears, Nose, Neck, Throat, Airway, Lungs, Heart Size, Heart Rate, Heart Rhythm, Neuro Exam, Abdomen, Extremities and Skin Hours since solid foods: 12 Hours since liquid intake: 12 Mallampati Classification: class II Internal Medicine - PN: Obj Da Vital Signs Vital Signs: Vital Signs - 24 hr 10/08/22 10:30 Temperature 98.2 F Pulse Rate 82 Respiratory Rate 22 H Blood Pressure 105/82 Pulse Oximetry 100 Oxygen Delivery Room Air ASA Classification/Sedation ASA Classification/Sedation ASA Class: III Emergent: No Risks: Risks, benefits and alternatives explained and patient/family accepted plan for sedation. Patient re-evaluated immediately prior to sedation.
--- NOTE | 2022-10-08 11:58 | P.OPB_ITS ---
Procedure Note - Brief Procedure Note - Brief Date of procedure: 10/08/22 dizziness, tachycardia, near syncope Post-op diagnosis: Same Procedure performed: Implantation of a Medtronic loop recorder under local anesthesia Surgeon: Ifeoma Roberts MD Description of procedure: After sterile prep and drape of the left parasternal area, and using 1% lidocaine for local anesthesia, a Medtronic loop recorder was implanted along the left parasternal area. The incision was closed using 2-0 Vicryl suture and skin adhesive. Sterile dressing was applied. The patient tolerated the procedure well. Implants: Medtronic loop recorder LINQ II serial # [id number] Complications: No immediate complications Condition: Stable Disposition: Observation
--- NOTE | 2022-10-08 12:02 | P.OP_ITS ---
Procedure Note - Detailed Date of Procedure 10/08/22 Pre-op Diagnosis dizziness, tachycardia, near syncope Post-op Diagnosis Other (Status post loop recorder) Procedure Performed Implantation of a Medtronic loop recorder under local anesthesia Surgeon Ifeoma Roberts MD Anesthesia Local (18 mL of 1% lidocaine) Indications Sonal Arrington is a 67 y.o. female with several medical problems who has episodes of tachycardia with heart rates running in the 180s at home.? Episodes of presyncope as well.? Thirty day monitor was unrevealing.? She is here for an implanted loop recorder.? She has a poorly defined neurological disorder which is may be a variation of myasthenia gravis, with episodes of weakness and fatigue. Findings Normal sinus rhythm Description of Procedure After sterile prep and drape of the left parasternal area, and using 1% lidocaine for local anesthesia, a Medtronic loop recorder was implanted along the left parasternal area. The incision was closed using 2-0 Vicryl suture and skin adhesive. Sterile dressing was applied. The patient tolerated the procedure well. Implants Medtronic LINQ II serial # [id number] Estimated Blood Loss 1 (cc) Complications No immediate complications Condition Stable Disposition Observation
--- NOTE | 2022-10-08 12:27 | SUR.OPER ---
Discharge note: Patient received and verbalizes understanding of discharge instructions including procedural site care instructions and follow up appointment. Patient taken to husbands car via wheelchair.
== END 2022-10-08 12:29 | disposition home or self-care (01) ==
PROVIDERS: PCP Internal Medicine; Visit Provider Internal Medicine Cardiovascular Disease
PROC: (CPT 33285; principal; 2022-10-08 11:30)
DX: R55 Syncope and collapse (principal); R00.0 Tachycardia, unspecified
CPT/HCPCS: 33285; C1764

== ENCOUNTER 2022-10-15 13:17 | Inpatient (IN) | payer MEDICARE, OTHER, SELFPAY ==
[2022-10-15] VITALS (7 sets, daily range): BP systolic 149–182; BP diastolic 69–88; PULSE 66–91; RESP 14–21; TEMP 36.9–37.2; O2SAT 97–100
--- NOTE | ~2022-10-15 | XR_ITS ---
EXAMINATION: XR small bowel follow through DATE: 10/18/2022 10:24 INDICATION: Dysphagia TECHNIQUE: Assistant [employer] radiograph(s) of the abdomen was/were obtained. Oral contrast was administered, and sequential radiographs of the abdomen were obtained until oral contrast was noted to be in the proxi mal colon. COMPARISON: None. FINDINGS: The stomach has a normal appearance Transit time from the stomach to proximal colon was pk roximately 45 minutes. There is normal caliber and mucosal fold pattern throughout the small bowel. IMPRESSION: 1. Unremarkable small bowel follow-through. Reviewed, dictated and finalized at location A.
--- NOTE | ~2022-10-15 | US_ITS ---
EXAMINATION: US breast LT limited HISTORY: Cellulitis of the left breast TECHNIQUE: Limited left breast ultrasound was performed. FINDINGS: There is diffuse edema of the breast with areas of skin thickening. No suspicious cystic or solid mass is identified. There is no evidence of abscess. IMPRESSION: Left breast cellulitis without suspicious findings. BI-RADS Category 2: Benign finding(s). Reviewed, dictated and finalized at location A.
--- NOTE | ~2022-10-15 | XR_ITS ---
EXAMINATION: XR chest 1V portable Exam Date/Time: 10/16/2022 22:50 CDT HISTORY: rapid response call; airway concern Comparison: 02/24/2022. RESULT: Lines, tubes, and devices: None. Lungs and pleura: Clear. Cardiomediastinal silhouette: Stable. Somewhat nodular opacity over the right hilum, probably repres enting summation artifact from a confluence of pulmonary vessels. Other: No acute osseous or upper abdominal finding. IMPRESSION: No acute cardiopulmonary process. Somewhat nodular right hilar opacity, likely summation artifact. Consider PA and lateral views of the chest at full inspiration to evaluate persistence. Reviewed, dictated and finalized at location K. IMPRESSION: No acute cardiopulmonary process. Somewhat nodular right hilar opacity, likely summation artifact. Consider PA an d lateral views of the chest at full inspiration to evaluate persistence.
--- NOTE | ~2022-10-15 | XR_ITS ---
EXAMINATION: XR UGI w barium swallow DATE: 10/18/2022 09:59 INDICATION: Dysphagia TECHNIQUE: The patient drank thick barium. Fluoroscopy of the esophagus, stomach, and proximal small bowel was performed. Fluoroscopy exposure time was 1.3 minutes. The DAP for this procedure was 8.07 G ycm2. COMPARISON: None. FINDINGS: There is mild delayed emptying of the distal esophagus. There appears to be mild achalasia. There is no hiatal hernia. There was no gastroesophageal reflux with provocative maneuvers. The stom ach and proximal small bowel show normal folding patterns. IMPRESSION: 1. Mild delayed emptying of the distal esophagus with possible mild achalasia. Reviewed, dictated and finalized at location A.
--- NOTE | 2022-10-15 15:30 | ED.WOUNDLAC ---
HPI - Wound/Laceration General Chief Complaint: Wound/Laceration Stated Complaint: wound, infected loop recorder Time Seen by Provider: 10/15/22 15:21 History of Present Illness HPI narrative: Patient is a 67-year-old female with a history of myasthenia gravis presenting with a skin infection. Patient had a loop recorder placed last week due to symptomatic tachycardia. States that she has been on daily Levaquin since then. Unfortunately, the area around the site has become increasingly red and painful. She spoke with her retread technician who advised that she come to the ER for admission. The plan is to remove it tomorrow. Patient reports chills but no fevers. No vomiting. Denies further complaints. Related Data Home Medications Medication Instructions Recorded Confirmed duloxetine 60 mg capsule,delayed 60 mg PO DAILY 09/07/20 10/15/22 release fluticasone furoate 200 1 inh inhalation DAILY 09/07/20 10/15/22 mcg-vilanterol 25 mcg/dose inhalation powder (Breo Ellipta) montelukast 10 mg tablet 10 mg PO DAILY 09/07/20 10/15/22 pyridostigmine bromide 180 mg 180 mg PO DAILY 09/07/20 10/15/22 tablet,extended release cholecalciferol (vitamin D3) 100 100 mcg PO DAILY 10/07/22 10/15/22 mcg (4,000 unit) tablet levalbuterol HCl 0.63 mg/3 mL 0.63 mg inhalation PRN PRN Wheezing 10/07/22 10/15/22 solution for nebulization omeprazole 20 mg tablet,delayed 20 mg PO DAILY 10/07/22 10/15/22 release pyridostigmine bromide 60 mg tablet 60 mg PO Q4-5H 10/07/22 10/15/22 Allergies Allergy/AdvReac Type Severity Reaction Status Date / Time Sulfa (Sulfonamide Allergy Mild Anaphylactic Verified 10/15/22 14:52 Antibiotics) Shock nortriptyline Allergy Unknown Confusion Verified 10/15/22 14:52 Penicillins Allergy Unknown Anaphylactic Verified 10/15/22 14:52 Shock tree nut Allergy Anaphylaxis Verified 10/16/22 09:31 codeine AdvReac Mild Nausea Verified 10/16/22 09:31 [place]ell Allergy Severe Anaphylaxis Uncoded 10/16/22 09:31 ORANGES Allergy Unknown Anaphylactic Uncoded 10/16/22 09:31 Shock Review of Systems Review of Systems: All systems reviewed & are unremarkable except as noted in HPI and below PMFSH Past Medical History Medical History (Updated 10/16/22 @ 08:41 by Ifeoma Roberts MD) Allergic rhinitis Asthma Myasthenia gravis Obstructive sleep apnea treated with BiPAP Vitamin D deficiency Surgical History Surgical History (Updated 10/15/22 @ 17:09 by Fatoumata Phillips PA-C) History of bladder suspension procedure History of cholecystectomy History of hysterectomy History of loop recorder History of tonsillectomy History of tubal ligation Family History Family History Mother Family history of diabetes mellitus in first degree relative, Onset Age: 55 Father Malignant neoplasm of prostate Patient's father is Social History Social History (Updated 10/15/22 @ 17:37 by Fatoumata Phillips PA-C) Social History: Surrogate medical decision maker: Miko Arrington, spouse. Code status: Full code. Smoking status: Never smoker Second hand tobacco smoke exposure: No Alcohol intake: never Substance use: never Substance use type: does not use Lack of Transportation: No Lack of Food: Never True Current Housing: I Have Housing Concerned About Future Housing: No Difficulty Paying Gas/Electric Bills: No Difficulty Paying for Meds: No Currently Unemployed: No Education: Bachelor's Degree Difficulty w/ Childcare or Family Care: No Living arrangements: with family Spiritual care concerns: No Exam Narrative: GENERAL: Well-appearing, well-nourished, and in no acute distress. Pleasant and cooperative HEAD: Normocephalic, atraumatic. EYES: PERRLA and EOMI. ENT: Nares clear, no rhinorrhea or epistaxis. Mucous membranes moist. NECK: Supple. CHEST: No respiratory distress. left breast with
[2022-10-15 16:16] LABS: Basophils Percent Auto 0.5 % (0.2-1.2); Eosinophils Absolute Auto 0.2 K/mm3 (0-0.3); Eosinophils Percent Auto 2.1 % (0-4.4); Hemoglobin 13.5 g/dL (12.0-15.0); Immature Granulocyte Absolute 0.02 K/mm3 (0.00-0.031); Immature Granulocyte Percent A 0.2 % (0-0.5); Lymphocytes Absolute Auto 2.15 K/mm3 (0.9-3.2); Lymphocytes Percent Auto 26.8 % (18.3-44.2); Mean Corpuscular HGB Conc 32.9 g/dl (32-36); Mean Corpuscular Hemoglobin 30.7 pg (26-34); Mean Corpuscular Volume 93.2 fl (80-100); Mean Platelet Volume 9.8 fl (7.4-10.4); Monocytes Absolute Auto 0.7 K/mm3 (0.1-0.6); Monocytes Percent Auto 9.1 % (2.6-8.5); Neutrophils Absolute Auto 4.9 K/mm3 (1.3-6.7); Neutrophils Percent Auto 61.3 % (45.5-73.1); Platelet Count Result 243 k/mm3 (150-375); Red Cell Distribution Width 12.3 % (11.5-14.5)
[2022-10-15 16:25] LABS: Alanine Aminotransferase 34 U/L (6-35); Albumin Level 4.5 g/dL (3.5-5.1); Alkaline Phosphatase 104 U/L (38-126); Anion Gap -6 mmol/L (8-16); Aspartate Amino Transferase 36 U/L (14-36); Bilirubin,Total 0.4 mg/dL (0.2-1.3); Blood Urea Nitrogen 13 mg/dL (7-17); Calcium 9.3 mg/dL (8.4-10.2); Carbon Dioxide 31 mmol/L (22-30); Chloride 109 mmol/L (98-107); Estimated CRCL calculation 87 ml/min; Estimated Glomerular Filt Rate > 60; Glucose 90 mg/dL (65-110); Potassium 3.8 mmol/L (3.4-5.0); Sodium 134 mmol/L (137-145)
[2022-10-15 16:26] LABS: Lactic Acid Reflex 0.7 mmol/L (0.7-2.0)
[2022-10-15] MEDS: AZTREONAM 2 GM in SODIUM CHLORIDE 0.9% IV 100 ML 200 ML IVPB ×2 (16:34→22:10)
--- NOTE | 2022-10-15 17:04 | PM.IMHP ---
H&P: HPI History of Present Illness Date/Time: 10/15/22 16:30 Chief Complaint: Wound at site of recent loop recorder insertion. Narrative: This is a very pleasant 59-year-old female with myasthenia gravis, obstructive sleep apnea on BiPAP, and asthma who presented to the emergency department via private vehicle for evaluation of a wound at the site of her recent loop recorder insertion. The patient provides the following history. She recently wore a 30 day event monitor for evaluation of palpitations, dizziness, and near-syncope and had a loop recorder inserted on 10/08/2022. Several days thereafter she developed some redness around the insertion site and she was started on levofloxacin on Thursday for suspected infection. Unfortunately the redness has continued to spread and she now has pain and swelling onto the left breast. She has not been running fever but does endorse chills and sweats. She has not noticed any drainage from the wound however it was glued. She has no known history of MRSA. Vital signs were stable on arrival. Labs were pretty unremarkable though sodium was a bit low at 134. She was started on aztreonam and vancomycin in the ED and she is being admitted in this setting. Review of Systems Review of Systems: Twelve systems were reviewed. No recent cold or flu symptoms. No chest pain or shortness a breath. She has frequent episodes of palpitations and tachycardia. Occasional near-syncope but no syncope. Denies pleuritic pain. No lower extremity edema or calf pain. No nausea or vomiting. Reports intermittent dysphagia and occasional voice changes when over exerting. Not unusual for her to have lid lag, all related to the myasthenia. None of the symptoms are worse than normal. Except as documented, all other systems were reviewed and are negative. [facility] Past Medical History Medical History (Updated 10/15/22 @ 17:44 by Fatoumata Phillips PA-C) Allergic rhinitis Asthma Myasthenia gravis Obstructive sleep apnea treated with BiPAP Vitamin D deficiency Surgical History Surgical History (Updated 10/15/22 @ 17:09 by Fatoumata Phillips PA-C) History of bladder suspension procedure History of cholecystectomy History of hysterectomy History of loop recorder History of tonsillectomy History of tubal ligation Family History Family History Mother Family history of diabetes mellitus in first degree relative, Onset Age: 55 Father Malignant neoplasm of prostate Patient's father is Social History Social History (Updated 10/15/22 @ 17:37 by Fatoumata Phillips PA-C) Social History: Surrogate medical decision maker: Miko Arrington, spouse. Code status: Full code. Smoking status: Never smoker Second hand tobacco smoke exposure: No Alcohol intake: never Substance use: never Substance use type: does not use Living arrangements: with family Spiritual care concerns: No Meds Home Medications and Allergies Home Medications Medication Instructions Recorded Confirmed Type duloxetine 60 mg capsule,delayed 60 mg PO DAILY 09/07/20 10/07/22 History release fluticasone furoate 200 1 inh inhalation DAILY 09/07/20 10/07/22 History mcg-vilanterol 25 mcg/dose inhalation powder (Breo Ellipta) fluticasone propionate 110 1 puff inhalation PRN 09/07/20 10/07/22 History mcg/actuation HFA aerosol inhaler (Flovent HFA) montelukast 10 mg tablet 10 mg PO DAILY 09/07/20 10/08/22 History pyridostigmine bromide 180 mg 180 mg PO DAILY 09/07/20 10/07/22 History tablet,extended release cholecalciferol (vitamin D3) 100 100 mcg PO DAILY 10/07/22 10/07/22 History mcg (4,000 unit) tablet levalbuterol HCl 0.63 mg/3 mL 0.63 mg inhalation PRN PRN Wheezing 10/07/22 10/07/22 History solution for nebulization omeprazole 20 mg tablet,delayed 20 mg PO DAILY 10/07/22 10/08/22 History release pyridostigmine bromide 60 mg tab
[2022-10-15] MEDS: VANCOMYCIN 1,000 MG/NS 250 ML BAG 250 MG IVPB (17:15)
[2022-10-15] MEDS: ACETAMINOPHEN 325 MG TABLET 650 MG PO (18:26)
--- NOTE | 2022-10-15 20:32 | ADMGEN ---
This patient, Sonal Arrington, was admitted to [facility] Surg Room 309-01. Patient/family oriented to hospital policies and general routines including ID bracelet, bed and alarms, visiting hours, pain management, procedures, bathroom and other care routines, personal items, smoking policy, room service/diet, and visiting hours. Information on how to activate the Rapid Response Team has been discussed. Patient/Family are encouraged to report perceived risks to care and to ask questions if they do not understand what they are told or what they should do.
[2022-10-15] MEDS: diphenhydrAMINE HCl CAP 25 MG CAPSULE PO (23:29)
[2022-10-16] VITALS (16 sets, daily range): BP systolic 93–141; BP diastolic 49–87; PULSE 55–74; RESP 12–20; TEMP 36.4–37.4; O2SAT 95–100
[2022-10-16] MEDS: ACETAMINOPHEN 325 MG TABLET 650 MG PO (03:20)
[2022-10-16] MEDS: VANCOMYCIN 1,000 MG/NS 250 ML 1,000 MG/250 ML BAG 250 MG IVPB ×2 (05:11→16:45)
[2022-10-16] MEDS: AZTREONAM 2 GM in SODIUM CHLORIDE 0.9% IV 100 ML 200 ML IVPB ×3 (06:14→21:56)
[2022-10-16] MEDS: pyRIDostigmine bromide 60 MG TABLET PO (06:16)
[2022-10-16 06:17] LABS: Basophils Absolute Auto 0.1 K/mm3 (0.0-0.1); Basophils Percent Auto 0.9 % (0.2-1.2); Eosinophils Absolute Auto 0.3 K/mm3 (0-0.3); Eosinophils Percent Auto 3.8 % (0-4.4); Hematocrit 43.1 % (37.0-47.0); Hemoglobin 13.9 g/dL (12.0-15.0); Immature Granulocyte Absolute 0.02 K/mm3 (0.00-0.031); Immature Granulocyte Percent A 0.3 % (0-0.5); Lymphocytes Absolute Auto 1.98 K/mm3 (0.9-3.2); Lymphocytes Percent Auto 30.3 % (18.3-44.2); Mean Corpuscular HGB Conc 32.3 g/dl (32-36); Mean Corpuscular Hemoglobin 30.4 pg (26-34); Mean Corpuscular Volume 94.3 fl (80-100); Mean Platelet Volume 9.9 fl (7.4-10.4); Monocytes Absolute Auto 0.8 K/mm3 (0.1-0.6); Monocytes Percent Auto 12.7 % (2.6-8.5); Neutrophils Absolute Auto 3.4 K/mm3 (1.3-6.7); Platelet Count Result 236 k/mm3 (150-375); Red Blood Count 4.57 M/mm3 (4.2-5.4); Red Cell Distribution Width 12.4 % (11.5-14.5); White Blood Count 6.5 K/mm3 (4.5-10.0)
[2022-10-16 06:31] LABS: Anion Gap -9 mmol/L (8-16); Blood Urea Nitrogen 13 mg/dL (7-17); Calcium 9.3 mg/dL (8.4-10.2); Carbon Dioxide 32 mmol/L (22-30); Chloride 111 mmol/L (98-107); Estimated CRCL calculation 87 ml/min; Estimated Glomerular Filt Rate > 60; Glucose 98 mg/dL (65-110); Magnesium 2.2 mg/dL (1.6-2.3); Potassium 4.1 mmol/L (3.4-5.0); Sodium 134 mmol/L (137-145)
--- NOTE | 2022-10-16 07:43 | PM.CNCAR ---
Assessment and Plan Assessment and plan (1) Cellulitis of left breast: Code(s): N61.0 - Mastitis without abscess Status: Acute Assessment and Plan: Cellulitis of left breast near and including loop recorder site. No h/o metal allergy, so likely an infecton. Fortunately no fever or eleated WBC. On IV antibiotics. --Rec explant of loop recorder. --No plans for re-implant (2) Status post placement of implantable loop recorder: Code(s): Z95.818 - Presence of other cardiac implants and grafts Status: Acute Assessment and Plan: Loop recorder implanted last week for sx of presyncope and episodes of tachycardia, HR 180's at home. (3) Myasthenia gravis: Code(s): G70.00 - Myasthenia gravis without (acute) exacerbation Status: Acute Assessment and Plan: H/O myasthenia gravis or similar neuromuscular disease. Not clearly defined. (4) Tachycardia: Code(s): R00.0 - Tachycardia, unspecified Status: Acute Assessment and Plan: Episodes of tachycardia HR up to 180 per pt. Also episodes of presyncope. 30 day event monitor performed w/o sigificant arrhythmias, but pt did not have these typcal sx during recording. S/p loop recorder implant last week. Will explant today. NO plans for re-implantation; prob repeat the 30 dy monitor at a later date. History of Present Illness History of Present Illness Consult date/time: 10/16/22 07:43 Reason For Visit: Infected Loop Recorder Narrative: Sonal Arrington is a 67-year-old female whom we were asked to see at the request of Fatoumata ELIZABETH for our advice and opinion regarding the apparent infection at the loop recorder site, in consultation. Ms. Arrington has had episodes of near syncope, and episodes of tachycardia where she finds her heart rate to 180. A 30 day event monitor did reveal any significant arrhythmias but she had none of these typical symptoms during that time. She had an implantable loop recorder placed last week for further evaluation. On Thursday she came to the office for an incision check she had some surrounding erythema. She was started on antibiotic, Levaquin, but yesterday when she returned she had progressive erythema and pain of the incision and left breast area. She was admitted and started on vancomycin and aztreonam. She has not had any fevers, chills, shortness of breath, etc. Ms. Arrington has a neuromuscular disorder which is apparently myasthenia gravis or a similar neuromuscular disorder, and progressive weakness and episodes or spells of gasping and loss of motor tone related this. Review of Systems Constitutional: Constitutional: Reports fatigue, Denies fever(s) and Reports lethargy Eyes: Eyes: Reports no additional eye complaints ENT: Denies epistaxis Cardiovascular: Cardiovascular: Denies chest pain, Denies pedal edema, Reports lightheadedness and Denies dyspnea Respiratory: Respiratory: Denies chest congestion and Denies dyspnea Gastrointestinal: Gastrointestinal: Denies abdominal pain and Denies hematochezia Genitourinary: Genitourinary: Reports no additional female genitourinary complaints Musculoskeletal: Musculoskeletal: Reports no additional musculoskeletal complaints Integumentary/Breasts: Skin/Breast: Reports system reviewed and no additional complaints, except as docu Neurologic: Denies behavioral changes Comments: Myasthenia episodes manifest as episodes of gasping, loss of motor tone, sumanth if her left clavicle is touched. Weakness and fatigue, progressive through the day. Psychiatric: Psychiatric: Denies behavioral changes [facility] Past Medical History Medical History (Updated 10/16/22 @ 08:41 by Ifeoma Roberts MD) Allergic rhinitis Asthma Myasthenia gravis Obstructive sleep apnea treated with BiPAP Vitamin D deficiency Surgical History Surgical History (Updated 10/15/22 @ 17:09 by Fatoumata Phillips PA-C) History of bladder suspension
--- NOTE | 2022-10-16 07:47 | WPDHPUPDATE1 ---
History and Physical Update Update Date/Time: 10/16/22 07:47 History and Physical has been reviewed, including an updated exam of the patient. There are NO changes in the patient's condition. Risks, benefits, and alternatives have been discussed and questions answered. Patient agrees to proceed with procedure.
--- NOTE | 2022-10-16 07:47 | WPDMODSED ---
Moderate Sedation Note-Pt Data Patient Data Diagnosis: Infected loop recorder side, cellulitis Present Complaint: episodes syncope, episodes of tachycardia, neuromuscular disorder possible myasthenia gravis. Loop recorder implanted last week, found have surrounding erythema on Thursday and started on antibiotics, seen yesterday in the office with worsening erythema, admitted with cellulitis and infected loop recorder site. The patient is here for a loop recorder explant. Procedure to be performed/Plan: Possible conscious sedation explant of loop recorder Allergies Allergy/AdvReac Type Severity Reaction Status Date / Time codeine Allergy Intermediate Anaphylaxis Verified 10/15/22 14:52 Sulfa (Sulfonamide Allergy Mild Anaphylactic Verified 10/15/22 14:52 Antibiotics) Shock nortriptyline Allergy Unknown Confusion Verified 10/15/22 14:52 Penicillins Allergy Unknown Anaphylactic Verified 10/15/22 14:52 Shock tree nut Allergy Unknown Verified 10/15/22 14:52 ORANGES Allergy Unknown Anaphylactic Uncoded 10/15/22 14:52 Shock Home Medications Medication Instructions Recorded Confirmed Type duloxetine 60 mg capsule,delayed 60 mg PO DAILY 09/07/20 10/15/22 History release fluticasone furoate 200 1 inh inhalation DAILY 09/07/20 10/15/22 History mcg-vilanterol 25 mcg/dose inhalation powder (Breo Ellipta) montelukast 10 mg tablet 10 mg PO DAILY 09/07/20 10/15/22 History pyridostigmine bromide 180 mg 180 mg PO DAILY 09/07/20 10/15/22 History tablet,extended release cholecalciferol (vitamin D3) 100 100 mcg PO DAILY 10/07/22 10/15/22 History mcg (4,000 unit) tablet levalbuterol HCl 0.63 mg/3 mL 0.63 mg inhalation PRN PRN Wheezing 10/07/22 10/15/22 History solution for nebulization omeprazole 20 mg tablet,delayed 20 mg PO DAILY 10/07/22 10/15/22 History release pyridostigmine bromide 60 mg tablet 60 mg PO Q4-5H 10/07/22 10/15/22 History Current Medications: Active Medications Acetaminophen (Acetaminophen 325 Mg Tablet) 650 mg PO Q6H PRN PRN Reason: Mild Pain (1-3) or Fever Last Admin: 10/16/22 03:20 Dose: 650 mg Diphenhydramine HCl (Diphenhydramine Hcl Cap 25 Mg Capsule) 25 mg PO Q6H PRN PRN Reason: Itching Last Admin: 10/15/22 23:29 Dose: 25 mg Duloxetine HCl (Duloxetine Hcl 60 Mg Capsule.Dr) 60 mg PO DAILY [facility] Aztreonam 2 gm/ Sodium (Chloride) 100 mls @ 200 mls/hr IVPB Q8HR [facility] Last Admin: 10/16/22 06:14 Dose: 200 mls/hr Vancomycin HCl (Vancomycin 1,000 Mg/Ns 250 Ml) 1,000 mg in 250 mls @ 250 mls/hr IVPB Q12H [facility] Last Admin: 10/16/22 05:11 Dose: 250 mls/hr Levalbuterol HCl (Levalbuterol Neb 1.25 Mg/3 Ml) 0.63 mg INHALATION Q6HRT PRN PRN Reason: Wheezing Montelukast Sodium (Montelukast Sodium 10 Mg Tablet) 10 mg PO DAILY [facility] Pantoprazole Sodium (Pantoprazole 40 Mg Tablet) 40 mg PO QAM [facility] Pyridostigmine [place] (Pyridostigmine [place] 60 Mg Tablet) 60 - 120 mg PO Q6HR [facility] Last Admin: 10/16/22 06:16 Dose: 120 mg Fluticasone/Salmeterol (Fluticasone/Salmeterol 230-21 Mcg Inhaler 1 Puff) 2 puff INHALATION Q12HRT [facility] Vitamin D (Cholecalciferol 1,000 Units Tablet) 4,000 units PO DAILY [facility] Sedation/Anesthesia: No previous sedation/anesthesia problems (including family history). [facility] Past Medical History Medical History (Updated 10/15/22 @ 21:43 by Colleen Fisher MD) Allergic rhinitis Asthma Myasthenia gravis Obstructive sleep apnea treated with BiPAP Vitamin D deficiency Surgical History Surgical History (Updated 10/15/22 @ 17:09 by Fatoumata Phillips PA-C) History of bladder suspension procedure History of cholecystectomy History of hysterectomy History of loop recorder History of tonsillectomy History of tubal ligation Family History Family History Mother Family history of diabetes mellitus in first degree relative, Onset Age: 55 Father Malignant neoplasm of pros
--- NOTE | 2022-10-16 08:46 | PM.OP ---
Procedure Note - Brief Procedure Note - Brief Date of procedure: 10/16/22 Infected Loop Recorder Post-op diagnosis: Same Procedure performed: Conscious sedation Loop recorder explant Surgeon: Ifeoma Roberts MD Description of procedure: Unremarkable explant Complications: No immediate complications Condition: Stable Disposition: Observation
--- NOTE | 2022-10-16 08:47 | W.PM.PROC2 ---
Procedure Note - Detailed Date of Procedure 10/16/22 Pre-op Diagnosis Infected Loop Recorder Post-op Diagnosis Same Procedure Performed Conscious sedation loop recorder explant Surgeon Ifeoma Roberts MD Anesthesia Local ( conscious sedation) Description of Procedure After informed consent the patient was taken into the mobile home laborer. The left parasternal area was prepped and draped. conscious sedation was provided.Anesthesia was obtained using 1% lidocaine. A skin incision was madethe sutures excised, and carried down to the loop recorder with blunt and sharp dissection. A culture of the loop recorder tract was obtained. Culture of the vesicles on the skin was obtained. The device was grasped with forceps and delivered from the pocket. There was a small amount of blood but no significant drainage or pus from the pocket. The pocket was irrigated with sterile vancomycin-saline solution. Hemostasis was obtained with local compression. The tract was packed w/ iodoform gauze. A sterile dressing were applied. The patient tolerated the procedure well. There were no complications. Blood loss was negligible. Estimated Blood Loss 5 (< 5 cc's) Packing Yes (1/2 inch iodoform gauze) Complications No immediate complications Condition Stable Disposition Observation
[2022-10-16] MEDS: DULoxetine HCL 60 MG CAPSULE.DR PO (10:02)
[2022-10-16] MEDS: PANTOPRAZOLE 40 MG TABLET PO (10:02)
[2022-10-16] MEDS: pyRIDostigmine bromide 60 MG TABLET 120 MG PO ×3 (12:04→20:33)
[2022-10-16] MEDS: ACETAMINOPHEN 500 MG TABLET 1000 MG PO (12:09)
--- NOTE | 2022-10-16 12:56 | PHAR ---
HOME MED VERIFIED PYRIDOSTIGMINE ER 180MG TABLET TAKE 1 TABLET HS (@2200)
--- NOTE | 2022-10-16 15:58 | PM.IMPN ---
Progress Note: A&P Assessment and Plan (1) Cellulitis of left breast: Code(s): N61.0 - Mastitis without abscess Status: Acute (2) Postoperative infection of breast incision: Code(s): T81.49XA - Infection following a procedure, other surgical site, initial encounter Status: Acute (3) Status post placement of implantable loop recorder: Code(s): Z95.818 - Presence of other cardiac implants and grafts Status: Acute (4) Myasthenia gravis: Code(s): G70.00 - Myasthenia gravis without (acute) exacerbation Status: Acute (5) Asthma: Code(s): J45.909 - Unspecified asthma, uncomplicated Status: Acute (6) Obstructive sleep apnea treated with BiPAP: Code(s): G47.33 - Obstructive sleep apnea (adult) (pediatric) Status: Acute Plan The patient presented to the emergency department for evaluation of increasing redness, pain, and swelling about the left breast 8 days post loop recorder insertion.. She has infection around the incision site. She was previously on levofloxacin however that is nOt the best antibiotic for her given her myasthenia gravis. Cardiology has been consulted status post explantation off loop recorder. Cultures pending. Blood culture x2 no growth to date started on vancomycin and aztreonam. Continue pyridostigmine for myasthenia gravis. Asthma is controlled on maintenance inhaler. Subjective Date/time seen: 10/16/22 15:58 Interval history: Redness persist. Explantation of the loop recorder. Sore in her chest. No other complaints remains afebrile. Review of Systems Review of Systems: All systems reviewed & are unremarkable except as noted in HPI and below Exam Narrative: General: Well-developed, nontoxic-appearing female sitting up in bed. HEENT: PERRL, EOMI. Sclera anicteric. Oral mucosa moist. Neck: Supple. Nontender Respiratory: Lungs are clear to auscultation bilaterally. Due to auscultation Cardiovascular: Regular rate and rhythm with S1-S2. Chest: Loop recorder insertion site with dressing on. Surrounding erythema, edema, warmth, and tenderness which extends just past the nipple and to the underside of the breast. Gastrointestinal: Abdomen is soft, nontender, and nondistended with positive bowel sounds. Skin: Warm and dry. Extremities: No cyanosis, clubbing, or edema. Radial and pedal pulses intact. Neurological: Alert. Cranial nerves 2-12 are grossly intact though she does have intermittent right lid lag. No facial asymmetry. No gross focal deficits to casual conversation. Psychiatric: Pleasant and cooperative with normal mood and affect. Judgment and insight intact. Objective Data Vital Signs Vital Signs: Vital Signs - 24 hr 10/15/22 16:35 10/15/22 18:22 10/15/22 20:05 Temperature Pulse Rate 68 91 70 Respiratory Rate 14 17 19 Blood Pressure 154/77 H 152/76 H 149/76 H Pulse Oximetry 99 100 97 Oxygen Delivery 10/15/22 20:20 10/15/22 21:00 10/16/22 06:00 Temperature 98.4 F 97.6 F Pulse Rate 66 57 L Respiratory Rate 16 12 Blood Pressure 169/85 H 131/62 Pulse Oximetry 100 100 Oxygen Delivery Room Air 10/16/22 08:35 10/16/22 09:05 10/16/22 08:50 Temperature 98 F Pulse Rate 74 73 70 Respiratory Rate 16 16 16 Blood Pressure 131/63 134/58 L 134/67 Pulse Oximetry 96 98 95 Oxygen Delivery Room Air Room Air Room Air 10/16/22 09:20 10/16/22 09:30 10/16/22 09:45 Temperature 98.2 F 98.2 F Pulse Rate 70 70 70 Respiratory Rate 16 14 14 Blood Pressure 112/87 119/49 L 123/59 L Pulse Oximetry 95 96 99 Oxygen Delivery Room Air 10/16/22 10:15 10/16/22 11:15 10/16/22 13:48 Temperature 97.5 F L 99.2 F Pulse Rate 65 71 69 Respiratory Rate 16 16 Blood Pressure 136/65 135/63 Pulse Oximetry 100 100 Oxygen Delivery Intake/Output Intake/Output: Intake & Output 10/13/22 10/14/22 10/15/22 10/16/22 23:59 23:59 23:59 23:59 Intake Total 450 680 Balance 450 680 M
[2022-10-16] MEDS: oxyCODONE/ACETAMINOPHEN (*CRX) 5-325 MG TABLET 1 TABLET PO (16:01)
[2022-10-16] MEDS: oxyCODONE/ACETAMINOPHEN (*CRX) 10-325 MG TABLET 1 TAB PO (20:31)
[2022-10-16] MEDS: CHOLECALCIFEROL 1,000 UNITS TABLET 4000 UNITS PO (20:32)
[2022-10-16] MEDS: MONTELUKAST SODIUM 10 MG TABLET PO (20:33)
[2022-10-16] MEDS: FLUTICASONE/SALMETEROL 230-21 MCG INHALER 1 PUFF 2 PUFF INHALATION (20:38)
[2022-10-16 22:46] LABS: Glucose Point of Care 102 mg/dl (65-105)
--- NOTE | 2022-10-16 22:48 | ECG_ITS ---
Measurements Intervals [place] Rate: 73 P: 54 ND: 146 QRS: -46 QRSD: 89 T: 53 QT: 373 QTc: 412 Interpretive Statements SINUS RHYTHM LEFT ANTERIOR FASCICULAR BLOCK [QRS AXIS <= -45, QR IN I, RS IN II] MINIMAL ST DEPRESSION [0.025+ mV ST DEPRESSION] COMPARED TO ECG 02/24/2022 13:41:41 NO SIGNIFICANT CHANGES Electronically Signed On 10-17-2022 8:58:01 CDT by Maxime Pearl M.D.
[2022-10-16 23:05] LABS: Alveolar/Arterial O2 Gradient 30.1 mmHg; Base Excess ABG -0.7 mEq/l (+/-2.0); Fractional Inspired Oxygen 21 %; HCO3 ABG 24.4 mEq/l (22.0-26.0); Oxygen Content ABG 18.7 %vol (16.0-22.0); Oxygen Saturation ABG 93.8 % (95.0-100.0); Oxyhemoglobin 92.9 % THb (90.0-100.0); PCO2 ABG 41.7 mmHg (35.0-45.0); PO2 ABG 69.7 mmHg (80.0-100.0); PO2 FiO2 Ratio Arterial Blood 3.32 %; Total Hemoglobin 14.3 g/dL (12.0-18.0); pH ABG 7.385 (7.350-7.450)
[2022-10-16 23:06] LABS: Device ROOM AIR; Modified Allen's Test Pass; Site Drawn LEFT RADIAL
[2022-10-16 23:11] LABS: Hematocrit 42.1 % (37.0-47.0); Hemoglobin 13.5 g/dL (12.0-15.0); Mean Corpuscular HGB Conc 32.1 g/dl (32-36); Mean Corpuscular Hemoglobin 31.1 pg (26-34); Mean Platelet Volume 9.6 fl (7.4-10.4); Platelet Count Result 235 k/mm3 (150-375); Red Blood Count 4.34 M/mm3 (4.2-5.4); Red Cell Distribution Width 12.4 % (11.5-14.5); White Blood Count 10.4 K/mm3 (4.5-10.0)
[2022-10-16 23:22] LABS: Lactic Acid Reflex 1.3 mmol/L (0.7-2.0)
[2022-10-16 23:24] LABS: Alanine Aminotransferase 46 U/L (6-35); Albumin Level 3.9 g/dL (3.5-5.1); Alkaline Phosphatase 112 U/L (38-126); Anion Gap -2 mmol/L (8-16); Aspartate Amino Transferase 68 U/L (14-36); Bilirubin,Total 0.5 mg/dL (0.2-1.3); Blood Urea Nitrogen 12 mg/dL (7-17); Calcium 8.9 mg/dL (8.4-10.2); Carbon Dioxide 24 mmol/L (22-30); Chloride 112 mmol/L (98-107); Estimated CRCL calculation 87 ml/min; Estimated Glomerular Filt Rate > 60; Glucose 101 mg/dL (65-110); Magnesium 2.3 mg/dL (1.6-2.3); Phosphorus 4.6 mg/dL (2.5-4.5); Potassium 3.6 mmol/L (3.4-5.0); Sodium 134 mmol/L (137-145)
[2022-10-16 23:33] LABS: NT Pro B Type Natriuretic Pept 120 pg/mL (19.9-100); Troponin I < 0.012 ng/mL (0.000-0.034)
--- NOTE | 2022-10-16 23:37 | P.PNCROSS_ITS ---
Event Note Event Note Event Note: rapid response was called to the patient's room after patient had an episode of near-syncope. Upon arrival to the room patient is laying in bed. General: Patient is laying in bed, obtunded HEENT: Atraumatic normocephalic PERRLA EOM neck supple, no JVD lymphadenopathy respiratory: Clear to auscultation cardiovascular: S1-S2 heard abdomen: Soft nontender nondistended no hepatosplenomegaly extremities: no edema skin : cellulitis of the left breast [employer]: Obtunded, cranial nerves 2-12 grossly intact, face is symmetric, no focal sensorimotor deficit assessment and plan 1. Near-syncope episode: Patient was given Narcan, CBC, BMP, troponins, EKG, chest x-ray, lactic acid. 2. Altered mental status: Patient making gasping sounds suspect a seizure disorder 3. loop recorder infected: Status post removal
[2022-10-17] VITALS (15 sets, daily range): BP systolic 120–160; BP diastolic 54–76; PULSE 62–82; RESP 14–20; TEMP 36.3–36.9; O2SAT 96–100
[2022-10-17 01:24] LABS: Glucose Point of Care 136 mg/dl (65-105)
[2022-10-17 04:38] LABS: Estimated CRCL calculation 105 ml/min; Estimated Glomerular Filt Rate > 60
[2022-10-17 05:03] LABS: Vancomycin Trough 7.9 ug/mL (10.0-20.0)
[2022-10-17] MEDS: AZTREONAM 2 GM in SODIUM CHLORIDE 0.9% IV 100 ML 200 ML IVPB (06:25)
[2022-10-17] MEDS: FLUTICASONE/SALMETEROL 230-21 MCG INHALER 1 PUFF 2 PUFF INHALATION ×2 (07:34→20:23)
[2022-10-17] MEDS: DULoxetine HCL 60 MG CAPSULE.DR PO (08:02)
[2022-10-17] MEDS: pyRIDostigmine bromide 60 MG TABLET 120 MG PO ×4 (08:03→20:05)
[2022-10-17] MEDS: PANTOPRAZOLE 40 MG TABLET PO (08:03)
[2022-10-17] MEDS: ACETAMINOPHEN 500 MG TABLET 1000 MG PO (09:29)
--- NOTE | 2022-10-17 12:00 | PM.IMPN ---
Progress Note: A&P Assessment and Plan (1) Cellulitis of left breast: Code(s): N61.0 - Mastitis without abscess Status: Acute (2) Postoperative infection of breast incision: Code(s): T81.49XA - Infection following a procedure, other surgical site, initial encounter Status: Acute (3) Status post placement of implantable loop recorder: Code(s): Z95.818 - Presence of other cardiac implants and grafts Status: Acute (4) Myasthenia gravis: Code(s): G70.00 - Myasthenia gravis without (acute) exacerbation Status: Acute (5) Asthma: Code(s): J45.909 - Unspecified asthma, uncomplicated Status: Acute (6) Obstructive sleep apnea treated with BiPAP: Code(s): G47.33 - Obstructive sleep apnea (adult) (pediatric) Status: Acute Plan The patient presented to the emergency department for evaluation of increasing redness, pain, and swelling about the left breast 8 days post loop recorder insertion.. She has infection around the incision site. She was previously on levofloxacin however that is nOt the best antibiotic for her given her myasthenia gravis. Cardiology has been consulted status post explantation off loop recorder. Cultures pending. Blood culture x2 no growth to date started on vancomycin and aztreonam. Continue pyridostigmine for myasthenia gravis. Asthma is controlled on maintenance inhaler. Vasovagal syncopal episode on 10/16/2022 telemetry during that time revealed sinus bradycardia. Exacerbated by epigastric pain/nausea after she swallowed Mestinon. Will get a sofa g for ongoing dysphagia symptoms. She had history of esophageal dilatation in the past. Holter monitor in the past with 1 episode of SVT 130 beats per minute PACs and PVC burden of up to 1% Subjective Date/time seen: 10/17/22 12:00 Interval history: Events noted. Redness on her breast persist. Reports when she swallowed her Mestinon it got stuck and felt nauseous along with dizziness and when she tried to get she passed out reported some seizure-like episode received naloxone. She feels back to her normal self now. Upper GI symptoms has been ongoing for some time. She reports that she felt like she was unable to take deep breath. Telemetry during that time showed sinus bradycardia Review of Systems Review of Systems: All systems reviewed & are unremarkable except as noted in HPI and below Exam Narrative: General: Well-developed, nontoxic-appearing female sitting up in bed. HEENT: PERRL, EOMI. Sclera anicteric. Oral mucosa moist. Neck: Supple. Nontender Respiratory: Lungs are clear to auscultation bilaterally. Due to auscultation Cardiovascular: Regular rate and rhythm with S1-S2. Chest: Loop recorder insertion site with dressing on. Surrounding erythema, edema, warmth, and tenderness which extends just past the nipple and to the underside of the breast. Gastrointestinal: Abdomen is soft, nontender, and nondistended with positive bowel sounds. Skin: Warm and dry. Extremities: No cyanosis, clubbing, or edema. Radial and pedal pulses intact. Neurological: Alert. Cranial nerves 2-12 are grossly intact though she does have intermittent right lid lag. No facial asymmetry. No gross focal deficits to casual conversation. Psychiatric: Pleasant and cooperative with normal mood and affect. Judgment and insight intact. Objective Data Vital Signs Vital Signs: Vital Signs - 24 hr 10/16/22 13:48 10/16/22 16:00 10/16/22 16:00 Temperature 99.2 F Pulse Rate 69 71 69 Respiratory Rate 20 Blood Pressure 141/72 H Pulse Oximetry 100 Oxygen Delivery Fraction of Inspired Oxygen 10/16/22 20:46 10/16/22 21:54 10/16/22 23:05 Temperature 99.0 F Pulse Rate 69 65 Respiratory Rate 18 Blood Pressure 138/77 Pulse Oximetry 99 99 97 Oxygen Delivery Room Air CPAP Fraction of Inspired Oxygen 10/17/22 00:00 10/16/22 20:25 10/17/22 03:00 Temperature 98.0 F Pu
--- NOTE | 2022-10-17 13:24 | PM.PNCARD ---
Progress Note: A&P Assessment and Plan (1) Cellulitis of left breast: Code(s): N61.0 - Mastitis without abscess Status: Acute Assessment and Plan: Cellulitis of left breast near and including loop recorder site. No h/o metal allergy, so likely an infecton. Fortunately no fever or eleated WBC. On IV antibiotics. --Rec explant of loop recorder. --No plans for re-implant --wound cultures pending (2) Status post placement of implantable loop recorder: Code(s): Z95.818 - Presence of other cardiac implants and grafts Status: Acute Assessment and Plan: Loop recorder implanted last week for sx of presyncope and episodes of tachycardia, HR 180's at home. (3) Myasthenia gravis: Code(s): G70.00 - Myasthenia gravis without (acute) exacerbation Status: Acute Assessment and Plan: H/O myasthenia gravis or similar neuromuscular disease. Not clearly defined. (4) Tachycardia: Code(s): R00.0 - Tachycardia, unspecified Status: Acute Assessment and Plan: Episodes of tachycardia HR up to 180 per pt. Also episodes of presyncope. 30 day event monitor performed w/o sigificant arrhythmias, but pt did not have these typcal sx during recording. S/p loop recorder implant last week. Explanted yesterday. NO plans for re-implantation; prob repeat the 30 dy monitor at a later date. Subjective Date/time seen: 10/17/22 13:24 Interval history: Cardiology follow up Feeling okay today, no complaints aside from fatigue. Review of Systems Constitutional: Constitutional: Reports fatigue, Denies fever(s) and Reports lethargy Eyes: Eyes: Reports no additional eye complaints ENT: Denies epistaxis Cardiovascular: Cardiovascular: Denies chest pain, Denies pedal edema, Reports lightheadedness and Denies dyspnea Respiratory: Respiratory: Denies chest congestion and Denies dyspnea Gastrointestinal: Gastrointestinal: Denies abdominal pain and Denies hematochezia Genitourinary: Genitourinary: Reports no additional female genitourinary complaints Musculoskeletal: Musculoskeletal: Reports no additional musculoskeletal complaints Integumentary/Breasts: Skin/Breast: Reports system reviewed and no additional complaints, except as docu Neurologic: Denies behavioral changes and Denies confusion Psychiatric: Psychiatric: Denies behavioral changes and Denies confusion Endocrine: Endocrine: Reports fatigue Exam Const: General: cooperative, healthy appearing and comfortable; No confusion Orientation/consciousness: oriented to person, patient oriented x3 and No confusion HENMT: Mouth: Yes moist mucous membranes Eyes: General: appearance normal, both eyes and all related structures EOM: EOMs intact bilaterally Neck: Neck: supple Thyroid: thyroid normal Resp: Effort & Inspection: normal respiratory effort Auscultation: clear to auscultation bilaterally Cardio: Rate: regular rate Rhythm: regular rhythm Heart sounds: no murmurs GI: Inspection: normal to inspection Skin: Other: Medial lower quadrant of left breast is erythematous with some induration, w/ erythema extending up to the loop recorder site. The incision itself is covered with skin adhesive and is intact, no drainage. Neuro: General: oriented to person, patient oriented x3 and No confusion Extrem: Right lower extremity: no edema Left lower extremity: no edema Psych: Appearance: grossly normal Mental Status: mental status grossly normal Objective Data Vital Signs Vital Signs: Vital Signs - 24 hr 10/16/22 13:48 10/16/22 16:00 10/16/22 16:00 Temperature 37.3 C Pulse Rate 69 71 69 Respiratory Rate 20 Blood Pressure 141/72 H Pulse Oximetry 100 Oxygen Delivery Fraction of Inspired Oxygen 10/16/22 20:46 10/16/22 21:54 10/16/22 23:05 Temperature 37.2 C Pulse Rate 69 65 Respiratory Rate 18 Blood Pressure 138/77 Pulse Oximetry 99 99 97 Oxygen Delivery
[2022-10-17] MEDS: AZTREONAM 2 GM in SODIUM CHLORIDE 0.9% IV 100 ML IVPB ×2 (13:30→21:58)
[2022-10-17] MEDS: oxyCODONE/ACETAMINOPHEN (*CRX) 5-325 MG TABLET 1 TABLET PO ×2 (16:06→22:03)
[2022-10-17] MEDS: CHOLECALCIFEROL 1,000 UNITS TABLET 4000 UNITS PO (20:04)
[2022-10-17] MEDS: MONTELUKAST SODIUM 10 MG TABLET PO (20:05)
[2022-10-18] VITALS (11 sets, daily range): BP systolic 124–138; BP diastolic 53–65; PULSE 65–86; RESP 12–16; TEMP 36.3–38; O2SAT 96–100
[2022-10-18] MEDS: oxyCODONE/ACETAMINOPHEN (*CRX) 5-325 MG TABLET 1 TABLET PO ×3 (03:25→19:11)
[2022-10-18] MEDS: AZTREONAM 2 GM in SODIUM CHLORIDE 0.9% IV 100 ML IVPB ×3 (05:39→21:53)
[2022-10-18 06:57] LABS: Basophils Percent Auto 0.6 % (0.2-1.2); Eosinophils Absolute Auto 0.2 K/mm3 (0-0.3); Eosinophils Percent Auto 3.4 % (0-4.4); Hematocrit 38.2 % (37.0-47.0); Hemoglobin 12.4 g/dL (12.0-15.0); Immature Granulocyte Absolute 0.01 K/mm3 (0.00-0.031); Immature Granulocyte Percent A 0.2 % (0-0.5); Lymphocytes Absolute Auto 1.65 K/mm3 (0.9-3.2); Lymphocytes Percent Auto 26.7 % (18.3-44.2); Mean Corpuscular HGB Conc 32.5 g/dl (32-36); Mean Corpuscular Hemoglobin 30.8 pg (26-34); Mean Platelet Volume 9.6 fl (7.4-10.4); Monocytes Absolute Auto 0.8 K/mm3 (0.1-0.6); Monocytes Percent Auto 13.6 % (2.6-8.5); Neutrophils Absolute Auto 3.4 K/mm3 (1.3-6.7); Neutrophils Percent Auto 55.5 % (45.5-73.1); Platelet Count Result 210 k/mm3 (150-375); Red Blood Count 4.02 M/mm3 (4.2-5.4); Red Cell Distribution Width 12.5 % (11.5-14.5); White Blood Count 6.2 K/mm3 (4.5-10.0)
[2022-10-18 07:04] LABS: Alanine Aminotransferase 217 U/L (6-35); Albumin Level 3.5 g/dL (3.5-5.1); Alkaline Phosphatase 75 U/L (38-126); Anion Gap -9 mmol/L (8-16); Aspartate Amino Transferase 167 U/L (14-36); Bilirubin,Total 0.5 mg/dL (0.2-1.3); Blood Urea Nitrogen 9 mg/dL (7-17); Calcium 8.9 mg/dL (8.4-10.2); Carbon Dioxide 31 mmol/L (22-30); Chloride 109 mmol/L (98-107); Estimated CRCL calculation 87 ml/min; Estimated Glomerular Filt Rate > 60; Glucose 102 mg/dL (65-110); Magnesium 2.1 mg/dL (1.6-2.3); Potassium 4.1 mmol/L (3.4-5.0); Sodium 131 mmol/L (137-145)
[2022-10-18] MEDS: FLUTICASONE/SALMETEROL 230-21 MCG INHALER 1 PUFF 2 PUFF INHALATION ×2 (07:58→20:18)
[2022-10-18] MEDS: pyRIDostigmine bromide 60 MG TABLET 120 MG PO ×4 (08:12→19:54)
[2022-10-18] MEDS: DULoxetine HCL 60 MG CAPSULE.DR PO (08:13)
[2022-10-18] MEDS: PANTOPRAZOLE 40 MG TABLET PO (08:13)
--- NOTE | 2022-10-18 12:27 | PM.PNCARD ---
Progress Note: A&P Assessment and Plan (1) Cellulitis of left breast: Code(s): N61.0 - Mastitis without abscess Status: Acute Assessment and Plan: Cellulitis of left breast near and including loop recorder site. No h/o metal allergy, so likely an infecton. Fortunately no fever or eleated WBC. On IV antibiotics. --Rec explant of loop recorder. Will consult Wound Care. Change dressing today. Remove packing today. (2) Status post placement of implantable loop recorder: Code(s): Z95.818 - Presence of other cardiac implants and grafts Status: Acute Assessment and Plan: Loop recorder implanted last week for sx of presyncope and episodes of tachycardia, HR 180's at home. (3) Myasthenia gravis: Code(s): G70.00 - Myasthenia gravis without (acute) exacerbation Status: Acute Assessment and Plan: H/O myasthenia gravis or similar neuromuscular disease. Not clearly defined. (4) Tachycardia: Code(s): R00.0 - Tachycardia, unspecified Status: Acute Subjective Date/time seen: 10/18/22 12:27 Interval history: Cardiology follow up for infected loop recorder Date of service 10/18/2022: The breast redness is slightly better. Discomfort is also slightly better. Review of Systems Constitutional: Constitutional: Reports fatigue, Denies fever(s) and Reports lethargy Eyes: Eyes: Reports no additional eye complaints ENT: Denies epistaxis Cardiovascular: Cardiovascular: Denies chest pain, Denies pedal edema, Reports lightheadedness and Denies dyspnea Respiratory: Respiratory: Denies chest congestion and Denies dyspnea Gastrointestinal: Gastrointestinal: Denies abdominal pain and Denies hematochezia Genitourinary: Genitourinary: Reports no additional female genitourinary complaints Musculoskeletal: Musculoskeletal: Reports no additional musculoskeletal complaints Integumentary/Breasts: Skin/Breast: Reports system reviewed and no additional complaints, except as docu Neurologic: Denies behavioral changes and Denies confusion Psychiatric: Psychiatric: Denies behavioral changes and Denies confusion Endocrine: Endocrine: Reports fatigue Exam Const: General: cooperative, healthy appearing and comfortable; No confusion Orientation/consciousness: oriented to person, patient oriented x3 and No confusion HENMT: Mouth: Yes moist mucous membranes Eyes: General: appearance normal, both eyes and all related structures EOM: EOMs intact bilaterally Neck: Neck: supple Thyroid: thyroid normal Resp: Effort & Inspection: normal respiratory effort Auscultation: clear to auscultation bilaterally Cardio: Rate: regular rate Rhythm: regular rhythm Heart sounds: no murmurs GI: Inspection: normal to inspection Skin: Other: Medial lower quadrant of left breast is erythematous with some induration, w/ erythema extending up to the loop recorder site. The incision itself is covered with skin adhesive and is intact, no drainage. Neuro: General: oriented to person, patient oriented x3 and No confusion Extrem: Right lower extremity: no edema Left lower extremity: no edema Psych: Appearance: grossly normal Mental Status: mental status grossly normal Objective Data Vital Signs Vital Signs: Vital Signs - 24 hr 10/17/22 13:20 10/17/22 16:00 10/17/22 20:27 Temperature 36.9 C Pulse Rate 70 74 Respiratory Rate 14 Blood Pressure 126/63 Pulse Oximetry 98 99 Oxygen Delivery Room Air Fraction of Inspired Oxygen 21 10/17/22 20:30 10/17/22 20:00 10/17/22 21:30 Temperature 36.3 C L Pulse Rate 70 70 Respiratory Rate 18 14 Blood Pressure 126/54 L Pulse Oximetry 100 Oxygen Delivery Room Air Fraction of Inspired Oxygen 10/17/22 22:55 10/17/22 20:00 10/18/22 00:00 Temperature Pulse Rate 72 80 69 Respiratory Rate Blood Pressure Pulse Oximetry 96 Oxygen Delivery CPAP Fraction of Inspired Oxygen 10/18
--- NOTE | 2022-10-18 14:09 | PM.IMPN ---
Progress Note: A&P Assessment and Plan (1) Cellulitis of left breast: Code(s): N61.0 - Mastitis without abscess Status: Acute (2) Postoperative infection of breast incision: Code(s): T81.49XA - Infection following a procedure, other surgical site, initial encounter Status: Acute (3) Status post placement of implantable loop recorder: Code(s): Z95.818 - Presence of other cardiac implants and grafts Status: Acute (4) Myasthenia gravis: Code(s): G70.00 - Myasthenia gravis without (acute) exacerbation Status: Acute (5) Asthma: Code(s): J45.909 - Unspecified asthma, uncomplicated Status: Acute (6) Obstructive sleep apnea treated with BiPAP: Code(s): G47.33 - Obstructive sleep apnea (adult) (pediatric) Status: Acute Plan The patient presented to the emergency department for evaluation of increasing redness, pain, and swelling about the left breast 8 days post loop recorder insertion.. She has infection around the incision site. She was previously on levofloxacin however that is nOt the best antibiotic for her given her myasthenia gravis. Cardiology has been consulted status post explantation off loop recorder. Cultures pending. Blood culture x2 no growth to date started on vancomycin and aztreonam. Continue pyridostigmine for myasthenia gravis. Asthma is controlled on maintenance inhaler. Vasovagal syncopal episode on 10/16/2022 telemetry during that time revealed sinus bradycardia. Exacerbated by epigastric pain/nausea after she swallowed Mestinon. Upper GI with findings of mild achalasia. 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 She had history of esophageal dilatation in the past. Holter monitor in the past with 1 episode of SVT 130 beats per minute PACs and PVC burden of up to 1% Wound Care consultation Follow culture Subjective Date/time seen: 10/18/22 14:09 Interval history: no overnight events. Redness in her breast persists but pain has lessened. Remains afebrile. Review of Systems Review of Systems: All systems reviewed & are unremarkable except as noted in HPI and below Exam Narrative: General: Well-developed, nontoxic-appearing female sitting up in bed. HEENT: PERRL, EOMI. Sclera anicteric. Oral mucosa moist. Neck: Supple. Nontender Respiratory: Lungs are clear to auscultation bilaterally. Due to auscultation Cardiovascular: Regular rate and rhythm with S1-S2. Chest: Loop recorder insertion site with dressing on. Surrounding erythema, edema, warmth, and tenderness which extends just past the nipple and to the underside of the breast. Gastrointestinal: Abdomen is soft, nontender, and nondistended with positive bowel sounds. Skin: Warm and dry. Extremities: No cyanosis, clubbing, or edema. Radial and pedal pulses intact. Neurological: Alert. Cranial nerves 2-12 are grossly intact though she does have intermittent right lid lag. No facial asymmetry. No gross focal deficits to casual conversation. Psychiatric: Pleasant and cooperative with normal mood and affect. Judgment and insight intact. Objective Data Vital Signs Vital Signs: Vital Signs - 24 hr 10/17/22 16:00 10/17/22 20:27 10/17/22 20:30 Temperature Pulse Rate 74 70 Respiratory Rate 18 Blood Pressure Pulse Oximetry 99 Oxygen Delivery Room Air Fraction of Inspired Oxygen 21 10/17/22 20:00 10/17/22 21:30 10/17/22 22:55 Temperature 97.4 F L Pulse Rate 70 72 Respiratory Rate 14 Blood Pressure 126/54 L Pulse Oximetry 100 96 Oxygen Delivery Room Air CPAP Fraction of Inspired Oxygen 10/17/22 20:00 10/18/22 00:00 10/18/22 02:40 Temperature Pulse Rate 80 69 Respiratory Rate Blood Pressure Pulse Oximetry Oxygen Delivery CPAP Fraction of Inspired Oxygen 10/18/22 04:00 10/18/22 05:40 10/18/22 08:00 Temperature 97.8 F
[2022-10-18 17:09] LABS: Vancomycin Trough 12.8 ug/mL (10.0-20.0)
[2022-10-18] MEDS: CHOLECALCIFEROL 1,000 UNITS TABLET 4000 UNITS PO (19:54)
[2022-10-18] MEDS: MONTELUKAST SODIUM 10 MG TABLET PO (19:54)
[2022-10-19] VITALS (12 sets, daily range): BP systolic 122–144; BP diastolic 54–65; PULSE 67–81; RESP 12–16; TEMP 36.2–36.7; O2SAT 96–100
[2022-10-19] MEDS: WITCH HAZEL 40 PADS 1 PAD TOPICAL (01:45)
[2022-10-19] MEDS: AZTREONAM 2 GM in SODIUM CHLORIDE 0.9% IV 100 ML IVPB ×3 (05:10→22:09)
[2022-10-19] MEDS: ACETAMINOPHEN 500 MG TABLET 1000 MG PO (05:56)
[2022-10-19 07:02] LABS: Basophils Absolute Auto 0.1 K/mm3 (0.0-0.1); Basophils Percent Auto 0.8 % (0.2-1.2); Eosinophils Absolute Auto 0.3 K/mm3 (0-0.3); Eosinophils Percent Auto 4.1 % (0-4.4); Hemoglobin 13.7 g/dL (12.0-15.0); Immature Granulocyte Absolute 0.02 K/mm3 (0.00-0.031); Immature Granulocyte Percent A 0.3 % (0-0.5); Lymphocytes Absolute Auto 1.89 K/mm3 (0.9-3.2); Lymphocytes Percent Auto 30.7 % (18.3-44.2); Mean Corpuscular HGB Conc 31.9 g/dl (32-36); Mean Corpuscular Hemoglobin 31.3 pg (26-34); Mean Corpuscular Volume 98.2 fl (80-100); Mean Platelet Volume 9.9 fl (7.4-10.4); Monocytes Absolute Auto 0.7 K/mm3 (0.1-0.6); Monocytes Percent Auto 11.4 % (2.6-8.5); Neutrophils Absolute Auto 3.2 K/mm3 (1.3-6.7); Neutrophils Percent Auto 52.7 % (45.5-73.1); Platelet Count Result 228 k/mm3 (150-375); Red Blood Count 4.38 M/mm3 (4.2-5.4); Red Cell Distribution Width 12.5 % (11.5-14.5); White Blood Count 6.2 K/mm3 (4.5-10.0)
[2022-10-19 07:12] LABS: Alanine Aminotransferase 195 U/L (6-35); Albumin Level 4.2 g/dL (3.5-5.1); Alkaline Phosphatase 95 U/L (38-126); Anion Gap -4 mmol/L (8-16); Aspartate Amino Transferase 94 U/L (14-36); Bilirubin,Total 0.5 mg/dL (0.2-1.3); Blood Urea Nitrogen 8 mg/dL (7-17); Calcium 9.5 mg/dL (8.4-10.2); Carbon Dioxide 34 mmol/L (22-30); Chloride 108 mmol/L (98-107); Estimated CRCL calculation 87 ml/min; Estimated Glomerular Filt Rate > 60; Glucose 103 mg/dL (65-110); Magnesium 2.3 mg/dL (1.6-2.3); Potassium 4.2 mmol/L (3.4-5.0); Sodium 138 mmol/L (137-145)
[2022-10-19] MEDS: FLUTICASONE/SALMETEROL 230-21 MCG INHALER 1 PUFF 2 PUFF INHALATION ×2 (08:09→20:09)
[2022-10-19] MEDS: pyRIDostigmine bromide 60 MG TABLET 120 MG PO ×4 (09:08→20:01)
[2022-10-19] MEDS: PANTOPRAZOLE 40 MG TABLET PO (09:09)
[2022-10-19] MEDS: DULoxetine HCL 60 MG CAPSULE.DR PO (09:09)
--- NOTE | 2022-10-19 09:28 | PM.PNCARD ---
Progress Note: A&P Assessment and Plan (1) Cellulitis of left breast: Code(s): N61.0 - Mastitis without abscess Status: Acute Assessment and Plan: Cellulitis of left breast near and including loop recorder site. No h/o metal allergy, so likely an infecton. Fortunately no fever or eleated WBC. On IV antibiotics. --Rec explant of loop recorder. Will consult Wound Care. Continue IV antibiotic (2) Status post placement of implantable loop recorder: Code(s): Z95.818 - Presence of other cardiac implants and grafts Status: Acute Assessment and Plan: Loop recorder implanted last week for sx of presyncope and episodes of tachycardia, HR 180's at home. (3) Myasthenia gravis: Code(s): G70.00 - Myasthenia gravis without (acute) exacerbation Status: Acute Assessment and Plan: H/O myasthenia gravis or similar neuromuscular disease. Not clearly defined. (4) Tachycardia: Code(s): R00.0 - Tachycardia, unspecified Status: Acute Subjective Date/time seen: 10/19/22 09:28 Interval history: Cardiology follow up for infected loop recorder Date of service 10/18/2022: The breast redness is slightly better. Discomfort is also slightly better. Date of service 10/19/2022: Packing removed yesterday. Feels better today. No chest pain Review of Systems Constitutional: Constitutional: Reports fatigue, Denies fever(s) and Reports lethargy Eyes: Eyes: Reports no additional eye complaints ENT: Denies epistaxis Cardiovascular: Cardiovascular: Denies chest pain, Denies pedal edema, Reports lightheadedness and Denies dyspnea Respiratory: Respiratory: Denies chest congestion and Denies dyspnea Gastrointestinal: Gastrointestinal: Denies abdominal pain and Denies hematochezia Genitourinary: Genitourinary: Reports no additional female genitourinary complaints Musculoskeletal: Musculoskeletal: Reports no additional musculoskeletal complaints Integumentary/Breasts: Skin/Breast: Reports system reviewed and no additional complaints, except as docu Neurologic: Denies behavioral changes and Denies confusion Psychiatric: Psychiatric: Denies behavioral changes and Denies confusion Endocrine: Endocrine: Reports fatigue Exam Const: General: cooperative, healthy appearing and comfortable; No confusion Orientation/consciousness: oriented to person, patient oriented x3 and No confusion HENMT: Mouth: Yes moist mucous membranes Eyes: General: appearance normal, both eyes and all related structures EOM: EOMs intact bilaterally Neck: Neck: supple Thyroid: thyroid normal Resp: Effort & Inspection: normal respiratory effort Auscultation: clear to auscultation bilaterally Cardio: Rate: regular rate Rhythm: regular rhythm Heart sounds: no murmurs GI: Inspection: normal to inspection Skin: Other: Wound evaluated. Packing removed yesterday. Wound looks clean at this point. Skin looks much less erythematous and warm today. Neuro: General: oriented to person, patient oriented x3 and No confusion Extrem: Right lower extremity: no edema Left lower extremity: no edema Psych: Appearance: grossly normal Mental Status: mental status grossly normal Objective Data Vital Signs Vital Signs: Vital Signs - 24 hr 10/18/22 12:00 10/18/22 16:00 10/18/22 14:40 Temperature 38.0 C H Pulse Rate 86 76 71 Respiratory Rate 16 Blood Pressure 124/54 L Pulse Oximetry 97 Oxygen Delivery Fraction of Inspired Oxygen 10/18/22 20:23 10/18/22 21:31 10/18/22 20:00 Temperature 36.3 C L Pulse Rate 71 Respiratory Rate 14 Blood Pressure 131/53 L Pulse Oximetry 98 100 100 Oxygen Delivery Room Air Room Air Fraction of Inspired Oxygen 21 10/18/22 20:00 10/19/22 00:00 10/18/22 22:48 Temperature Pulse Rate 75 68 74 Respiratory Rate Blood Pressure Pulse Oximetry 96 Oxygen Delivery CPAP Fraction of Inspired Oxygen 10/07
--- NOTE | 2022-10-19 12:56 | PM.IMPN ---
Progress Note: A&P Assessment and Plan (1) Cellulitis of left breast: Code(s): N61.0 - Mastitis without abscess Status: Acute (2) Postoperative infection of breast incision: Code(s): T81.49XA - Infection following a procedure, other surgical site, initial encounter Status: Acute (3) Status post placement of implantable loop recorder: Code(s): Z95.818 - Presence of other cardiac implants and grafts Status: Acute (4) Myasthenia gravis: Code(s): G70.00 - Myasthenia gravis without (acute) exacerbation Status: Acute (5) Asthma: Code(s): J45.909 - Unspecified asthma, uncomplicated Status: Acute (6) Obstructive sleep apnea treated with BiPAP: Code(s): G47.33 - Obstructive sleep apnea (adult) (pediatric) Status: Acute Plan The patient presented to the emergency department for evaluation of increasing redness, pain, and swelling about the left breast 8 days post loop recorder insertion.. She has infection around the incision site. She was previously on levofloxacin however that is nOt the best antibiotic for her given her myasthenia gravis. Cardiology has been consulted status post explantation off loop recorder. Cultures growing Staph aureus. Blood culture x2 no growth to date started on vancomycin and aztreonam. Continue pyridostigmine for myasthenia gravis. Asthma is controlled on maintenance inhaler. Vasovagal syncopal episode on 10/16/2022 telemetry during that time revealed sinus bradycardia. Exacerbated by epigastric pain/nausea after she swallowed Mestinon. Upper GI with findings of mild achalasia. She has this issue chronically and will continue to follow-up with her regular brake specialist as an outpatient basis. She had history of esophageal dilatation in the past. Holter monitor in the past with 1 episode of SVT 130 beats per minute PACs and PVC burden of up to 1% Wound Care consultation Follow culture which grew Staph aureus. Cellulitic area still worsening involving the back area 10/19. Will add clindamycin. Await sensitivity to the staph aureus Subjective Date/time seen: 10/19/22 12:56 Interval history: Feels the redness is gone further down to her back. Wound cultures back with staphylococci aureus. Remains on vancomycin IV and aztreonam. Review of Systems Review of Systems: All systems reviewed & are unremarkable except as noted in HPI and below Exam Narrative: General: Well-developed, nontoxic-appearing female sitting up in bed. HEENT: PERRL, EOMI. Sclera anicteric. Oral mucosa moist. Neck: Supple. Nontender Respiratory: Lungs are clear to auscultation bilaterally. Due to auscultation Cardiovascular: Regular rate and rhythm with S1-S2. Chest: Loop recorder insertion site with dressing on. Surrounding erythema, edema, warmth, and tenderness which extends just past the nipple and to the underside of the breast. Gastrointestinal: Abdomen is soft, nontender, and nondistended with positive bowel sounds. Skin: Warm and dry. Extremities: No cyanosis, clubbing, or edema. Radial and pedal pulses intact. Neurological: Alert. Cranial nerves 2-12 are grossly intact though she does have intermittent right lid lag. No facial asymmetry. No gross focal deficits to casual conversation. Psychiatric: Pleasant and cooperative with normal mood and affect. Judgment and insight intact. Objective Data Vital Signs Vital Signs: Vital Signs - 24 hr 10/18/22 16:00 10/18/22 14:40 10/18/22 20:23 Temperature 100.4 F H Pulse Rate 76 71 Respiratory Rate 16 Blood Pressure 124/54 L Pulse Oximetry 97 98 Oxygen Delivery Room Air Fraction of Inspired Oxygen 21 10/18/22 21:31 10/18/22 20:00 10/18/22 20:00 Temperature 97.4 F L Pulse Rate 71 75 Respiratory Rate 14 Blood Pressure 131/53 L Pulse Oximetry 100 100 Oxygen Delivery Room Air Fraction of Inspired Oxygen 10/19/22 00:00 10/18/22 22:48 10/19/22 04:00
[2022-10-19] MEDS: ACETAMINOPHEN 325 MG TABLET 650 MG PO ×2 (13:08→20:00)
[2022-10-19] MEDS: CLINDAMYCIN 600 MG/D5W 50 ML 600 MG/50 ML PIGGYBACK 100 MG IVPB ×2 (14:12→21:39)
[2022-10-19] MEDS: CHOLECALCIFEROL 1,000 UNITS TABLET 4000 UNITS PO (20:01)
[2022-10-19] MEDS: MONTELUKAST SODIUM 10 MG TABLET PO (20:01)
[2022-10-20] VITALS (11 sets, daily range): BP systolic 120–136; BP diastolic 64–69; PULSE 63–84; RESP 13–18; TEMP 36.1–36.8; O2SAT 98–100
[2022-10-20] MEDS: AZTREONAM 2 GM in SODIUM CHLORIDE 0.9% IV 100 ML IVPB (05:22)
[2022-10-20] MEDS: CLINDAMYCIN 600 MG/D5W 50 ML 600 MG/50 ML PIGGYBACK 100 MG IVPB ×3 (06:00→21:52)
[2022-10-20 06:56] LABS: Estimated CRCL calculation 87 ml/min; Estimated Glomerular Filt Rate > 60
[2022-10-20] MEDS: pyRIDostigmine bromide 60 MG TABLET 120 MG PO ×4 (08:02→20:02)
[2022-10-20] MEDS: DULoxetine HCL 60 MG CAPSULE.DR PO (08:02)
[2022-10-20] MEDS: PANTOPRAZOLE 40 MG TABLET PO (08:02)
[2022-10-20] MEDS: FLUTICASONE/SALMETEROL 230-21 MCG INHALER 1 PUFF 2 PUFF INHALATION ×2 (08:15→20:17)
--- NOTE | 2022-10-20 08:38 | PM.PNCARD ---
Progress Note: A&P Assessment and Plan (1) Cellulitis of left breast: Code(s): N61.0 - Mastitis without abscess <ROWAN Monroe - Last Filed: 10/20/22 13:26> Status: Acute <ROWAN Monroe - Last Filed: 10/20/22 13:26> Assessment and Plan: Cellulitis of left breast near and including loop recorder site. No h/o metal allergy, so likely an infecton. Fortunately no fever or eleated WBC. On IV antibiotics. --Improving --Rec explant of loop recorder. --Cont broad spectrum IV abx, awaiting sensitivities. Clindamycin also added. --Wound care following. Rec abx ointment (mupirocin) and packing q12 until pocket closed. <ROWAN Monroe - Last Filed: 10/20/22 13:26> (2) Status post placement of implantable loop recorder: Code(s): Z95.818 - Presence of other cardiac implants and grafts <ROWAN Monroe - Last Filed: 10/20/22 13:26> Status: Acute <ROWAN Monroe - Last Filed: 10/20/22 13:26> Assessment and Plan: Loop recorder implanted last week for sx of presyncope and episodes of tachycardia, HR 180's at home. <ROWAN Monroe - Last Filed: 10/20/22 13:26> (3) Myasthenia gravis: Code(s): G70.00 - Myasthenia gravis without (acute) exacerbation <ROWAN Monroe - Last Filed: 10/20/22 13:26> Status: Acute <ROWAN Monroe - Last Filed: 10/20/22 13:26> Assessment and Plan: H/O myasthenia gravis or similar neuromuscular disease. Not clearly defined. <ROWAN Monroe - Last Filed: 10/20/22 13:26> (4) Tachycardia: Code(s): R00.0 - Tachycardia, unspecified <ROWAN Monroe - Last Filed: 10/20/22 13:26> Status: Acute <ROWAN Monroe - Last Filed: 10/20/22 13:26> Assessment and Plan: ATTENDING ADDENDUM: I AGREE WITH THE ABOVE DOCUMENTATION AND PLAN OF CARE OUTLINED. <Jasmeet Avilez MD - Last Filed: 10/20/22 15:40> Subjective Date/time seen: 10/20/22 08:38 <ROWAN Monroe - Last Filed: 10/20/22 13:26> Interval history: Cardiology follow up for infected loop recorder Date of service 10/18/2022: The breast redness is slightly better. Discomfort is also slightly better. Date of service 10/19/2022: Packing removed yesterday. Feels better today. No chest pain Date of service 10/20/2022: Feeling better today, less discomfort in affected breast. Complaining of weakness. <ROWAN Monroe - Last Filed: 10/20/22 13:26> Review of Systems Constitutional: Constitutional: Reports fatigue, Denies fever(s) and Reports lethargy <ROWAN Monroe - Last Filed: 10/20/22 13:26> Eyes: Eyes: Reports no additional eye complaints <ROWAN Monroe - Last Filed: 10/20/22 13:26> ENT: Denies epistaxis <ROWAN Monroe - Last Filed: 10/20/22 13:26> Cardiovascular: Cardiovascular: Denies chest pain, Denies pedal edema, Reports lightheadedness and Denies dyspnea <ROWAN Monroe - Last Filed: 10/20/22 13:26> Respiratory: Respiratory: Denies chest congestion and Denies dyspnea <ROWAN Monroe - Last Filed: 10/20/22 13:26> Gastrointestinal: Gastrointestinal: Denies abdominal pain and Denies hematochezia <ROWAN Monroe - Last Filed: 10/20/22 13:26> Genitourinary: Genitourinary: Reports no additional female genitourinary complaints <ROWAN Monroe - Last Filed: 10/20/22 13:26> Musculoskeletal: Musculoskeletal: Reports no additional musculoskeletal complaints <ROWAN Monroe - Last Filed: 10/20/22 13:26> Integumentary/Breasts: Skin/Breast: Reports system reviewed and no additional complaints, except as docu <ROWAN Monroe - Last Filed: 10/20/22 13:26> Neurologic: Denies behavioral changes and Denies confusion <ROWAN Monroe - Last Filed: 10/20/22 13:26> Psychiatric: Psychiatric: Denies behavioral changes and Denies confusion <ROWAN Monroe
--- NOTE | 2022-10-20 14:14 | PM.IMPN ---
Progress Note: A&P Assessment and Plan (1) Cellulitis of left breast: Code(s): N61.0 - Mastitis without abscess Status: Acute (2) Postoperative infection of breast incision: Code(s): T81.49XA - Infection following a procedure, other surgical site, initial encounter Status: Acute (3) Status post placement of implantable loop recorder: Code(s): Z95.818 - Presence of other cardiac implants and grafts Status: Acute (4) Myasthenia gravis: Code(s): G70.00 - Myasthenia gravis without (acute) exacerbation Status: Acute (5) Asthma: Code(s): J45.909 - Unspecified asthma, uncomplicated Status: Acute (6) Obstructive sleep apnea treated with BiPAP: Code(s): G47.33 - Obstructive sleep apnea (adult) (pediatric) Status: Acute Plan The patient presented to the emergency department for evaluation of increasing redness, pain, and swelling about the left breast 8 days post loop recorder insertion.. She has infection around the incision site. She was previously on levofloxacin however that is nOt the best antibiotic for her given her myasthenia gravis. Cardiology has been consulted status post explantation off loop recorder. Cultures growing Staph aureus. Blood culture x2 no growth to date started on vancomycin and aztreonam. Continue pyridostigmine for myasthenia gravis. Asthma is controlled on maintenance inhaler. Vasovagal syncopal episode on 10/16/2022 telemetry during that time revealed sinus bradycardia. Exacerbated by epigastric pain/nausea after she swallowed Mestinon. Upper GI with findings of mild achalasia. She has this issue chronically and will continue to follow-up with her regular cadd drafter as an outpatient basis. She had history of esophageal dilatation in the past. Holter monitor in the past with 1 episode of SVT 130 beats per minute PACs and PVC burden of up to 1% Wound Care consultation Follow culture which grew Staph aureus. Cellulitic area still worsening involving the back area 10/19. Added clindamycin . back as MRSA. Wound Care to see Clindamycin sensitive MRSA will discuss with the patient regarding oral clindamycin at discharge. Will continue vancomycin IV for until the cellulitis gets better Subjective Date/time seen: 10/20/22 14:14 Interval history: feeling better. Redness is slightly chemist biological today per no other complaints. Review of Systems Review of Systems: All systems reviewed & are unremarkable except as noted in HPI and below Exam Narrative: General: Well-developed, nontoxic-appearing female sitting up in bed. HEENT: PERRL, EOMI. Sclera anicteric. Oral mucosa moist. Neck: Supple. Nontender Respiratory: Lungs are clear to auscultation bilaterally. Due to auscultation Cardiovascular: Regular rate and rhythm with S1-S2. Chest: Loop recorder insertion site with dressing on. Surrounding erythema, edema, warmth, and tenderness which extends just past the nipple and to the underside of the breast. Gastrointestinal: Abdomen is soft, nontender, and nondistended with positive bowel sounds. Skin: Warm and dry. Extremities: No cyanosis, clubbing, or edema. Radial and pedal pulses intact. Neurological: Alert. Cranial nerves 2-12 are grossly intact though she does have intermittent right lid lag. No facial asymmetry. No gross focal deficits to casual conversation. Psychiatric: Pleasant and cooperative with normal mood and affect. Judgment and insight intact. Objective Data Vital Signs Vital Signs: Vital Signs - 24 hr 10/19/22 16:02 10/19/22 19:57 10/19/22 20:13 Temperature Pulse Rate 68 Respiratory Rate Blood Pressure Pulse Oximetry 100 98 Oxygen Delivery Room Air Room Air 10/19/22 20:49 10/19/22 20:00 10/19/22 22:29 Temperature 98.1 F Pulse Rate 79 77 71 Respiratory Rate 16 Blood Pressure 135/62 Pulse Oximetry 100 96 Oxygen Delivery CPAP 10/20/22 00:00 10/20/22 02
[2022-10-20] MEDS: MUPIROCIN 2% OINT 22 GM TUBE 1 APPLIC TOPICAL (14:50)
[2022-10-20] MEDS: oxyCODONE/ACETAMINOPHEN (*CRX) 5-325 MG TABLET 1 TABLET PO (15:01)
[2022-10-20] MEDS: CHOLECALCIFEROL 1,000 UNITS TABLET 4000 UNITS PO (20:02)
[2022-10-20] MEDS: MONTELUKAST SODIUM 10 MG TABLET PO (20:02)
[2022-10-21] VITALS: PULSE 70
[2022-10-21 04:00] VITALS: PULSE 102
[2022-10-21] MEDS: oxyCODONE/ACETAMINOPHEN (*CRX) 5-325 MG TABLET 1 TABLET PO (04:00)
[2022-10-21] MEDS: MUPIROCIN 2% OINT 22 GM TUBE 1 APPLIC TOPICAL (05:02)
[2022-10-21] MEDS: CLINDAMYCIN 600 MG/D5W 50 ML 600 MG/50 ML PIGGYBACK 100 MG IVPB ×2 (05:02→13:37)
[2022-10-21 05:34] VITALS: BP 129/63; PULSE 63; RESP 12; TEMP 36.1; O2SAT 100
[2022-10-21 06:13] LABS: Basophils Absolute Auto 0.1 K/mm3 (0.0-0.1); Basophils Percent Auto 0.9 % (0.2-1.2); Eosinophils Absolute Auto 0.2 K/mm3 (0-0.3); Eosinophils Percent Auto 3.4 % (0-4.4); Hematocrit 39.6 % (37.0-47.0); Hemoglobin 12.9 g/dL (12.0-15.0); Immature Granulocyte Absolute 0.03 K/mm3 (0.00-0.031); Immature Granulocyte Percent A 0.5 % (0-0.5); Lymphocytes Absolute Auto 1.53 K/mm3 (0.9-3.2); Lymphocytes Percent Auto 23.5 % (18.3-44.2); Mean Corpuscular HGB Conc 32.6 g/dl (32-36); Mean Corpuscular Hemoglobin 31.1 pg (26-34); Mean Corpuscular Volume 95.4 fl (80-100); Mean Platelet Volume 9.7 fl (7.4-10.4); Monocytes Absolute Auto 0.7 K/mm3 (0.1-0.6); Neutrophils Percent Auto 60.7 % (45.5-73.1); Platelet Count Result 214 k/mm3 (150-375); Red Blood Count 4.15 M/mm3 (4.2-5.4); Red Cell Distribution Width 12.8 % (11.5-14.5); White Blood Count 6.5 K/mm3 (4.5-10.0)
[2022-10-21 06:32] LABS: Alanine Aminotransferase 140 U/L (6-35); Albumin Level 3.8 g/dL (3.5-5.1); Alkaline Phosphatase 84 U/L (38-126); Anion Gap -2 mmol/L (8-16); Aspartate Amino Transferase 76 U/L (14-36); Bilirubin,Total 0.5 mg/dL (0.2-1.3); Blood Urea Nitrogen 9 mg/dL (7-17); Calcium 9.1 mg/dL (8.4-10.2); Carbon Dioxide 28 mmol/L (22-30); Chloride 109 mmol/L (98-107); Estimated CRCL calculation 105 ml/min; Estimated Glomerular Filt Rate > 60; Glucose 118 mg/dL (65-110); Magnesium 2.1 mg/dL (1.6-2.3); Potassium 3.9 mmol/L (3.4-5.0); Sodium 135 mmol/L (137-145)
[2022-10-21 08:00] VITALS: PULSE 79
[2022-10-21] MEDS: DULoxetine HCL 60 MG CAPSULE.DR PO (08:28)
[2022-10-21] MEDS: PANTOPRAZOLE 40 MG TABLET PO (08:28)
[2022-10-21] MEDS: pyRIDostigmine bromide 60 MG TABLET 120 MG PO ×2 (08:28→13:31)
[2022-10-21] MEDS: FLUTICASONE/SALMETEROL 230-21 MCG INHALER 1 PUFF 2 PUFF INHALATION (08:43)
--- NOTE | 2022-10-21 10:12 | PM.PNCARD ---
Progress Note: A&P Assessment and Plan (1) Cellulitis of left breast: Code(s): N61.0 - Mastitis without abscess Status: Acute Assessment and Plan: Cellulitis of left breast near and including loop recorder site. No h/o metal allergy, so likely an infecton. Fortunately no fever or eleated WBC. On IV antibiotics. --Improving --Rec explant of loop recorder. --Cont broad spectrum IV abx. Will be shifted to p.o. Clindamycin on discharge --Wound care following. Rec abx ointment (mupirocin) and packing q12 until pocket closed. (2) Status post placement of implantable loop recorder: Code(s): Z95.818 - Presence of other cardiac implants and grafts Status: Acute Assessment and Plan: Loop recorder implanted last week for sx of presyncope and episodes of tachycardia, HR 180's at home. (3) Myasthenia gravis: Code(s): G70.00 - Myasthenia gravis without (acute) exacerbation Status: Acute Assessment and Plan: H/O myasthenia gravis or similar neuromuscular disease. Not clearly defined. (4) Tachycardia: Code(s): R00.0 - Tachycardia, unspecified Status: Acute Subjective Date/time seen: 10/21/22 10:12 Interval history: Cardiology follow up for infected loop recorder Date of service 10/18/2022: The breast redness is slightly better. Discomfort is also slightly better. Date of service 10/19/2022: Packing removed yesterday. Feels better today. No chest pain Date of service 10/20/2022: Feeling better today, less discomfort in affected breast. Complaining of weakness. Date of service 10/21/2022: Continues to improve. Feeling like she has more energy today. Worked with PT this morning. Denies fever/chills. Review of Systems Constitutional: Constitutional: Reports fatigue, Denies fever(s) and Reports lethargy Eyes: Eyes: Reports no additional eye complaints ENT: Denies epistaxis Cardiovascular: Cardiovascular: Denies chest pain, Denies pedal edema, Reports lightheadedness and Denies dyspnea Respiratory: Respiratory: Denies chest congestion and Denies dyspnea Gastrointestinal: Gastrointestinal: Denies abdominal pain and Denies hematochezia Genitourinary: Genitourinary: Reports no additional female genitourinary complaints Musculoskeletal: Musculoskeletal: Reports no additional musculoskeletal complaints Integumentary/Breasts: Skin/Breast: Reports system reviewed and no additional complaints, except as docu Neurologic: Denies behavioral changes and Denies confusion Psychiatric: Psychiatric: Denies behavioral changes and Denies confusion Endocrine: Endocrine: Reports fatigue Exam Const: General: cooperative, healthy appearing and comfortable; No confusion Orientation/consciousness: oriented to person, patient oriented x3 and No confusion HENMT: Mouth: Yes moist mucous membranes Eyes: General: appearance normal, both eyes and all related structures EOM: EOMs intact bilaterally Neck: Neck: supple Thyroid: thyroid normal Resp: Effort & Inspection: normal respiratory effort Auscultation: clear to auscultation bilaterally Cardio: Rate: regular rate Rhythm: regular rhythm Heart sounds: no murmurs GI: Inspection: normal to inspection Skin: Other: Left breast remains erythematous, slight improvement since yesterday. Dressing on site clean, dry, and intact. Neuro: General: oriented to person, patient oriented x3 and No confusion Extrem: Right lower extremity: no edema Left lower extremity: no edema Psych: Appearance: grossly normal Mental Status: mental status grossly normal Objective Data Vital Signs Vital Signs: Vital Signs - 24 hr 10/20/22 14:07 10/20/22 14:44 10/20/22 14:00 Temperature 36.8 C Pulse Rate 71 Respiratory Rate 16 Blood Pressure 121/69 Pulse Oximetry 100 Oxygen Delivery Room Air Room Air Fraction of Inspired Oxygen 10/20/22 12:00 10/20/22 16:00 10/20/22 20:33 Temperature Pu
[2022-10-21 12:00] VITALS: PULSE 80
--- NOTE | 2022-10-21 13:52 | PM.DS ---
DS: Admitting Diagnosis Discharge Date 10/21/2022 Admitting Diagnosis infected loop recorder DS: Discharge Diagnosis Discharge Diagnosis (1) Cellulitis of left breast: Code(s): N61.0 - Mastitis without abscess Status: Acute (2) Postoperative infection of breast incision: Code(s): T81.49XA - Infection following a procedure, other surgical site, initial encounter Status: Acute (3) Status post placement of implantable loop recorder: Code(s): Z95.818 - Presence of other cardiac implants and grafts Status: Acute (4) Myasthenia gravis: Code(s): G70.00 - Myasthenia gravis without (acute) exacerbation Status: Acute (5) Asthma: Code(s): J45.909 - Unspecified asthma, uncomplicated Status: Acute (6) Obstructive sleep apnea treated with BiPAP: Code(s): G47.33 - Obstructive sleep apnea (adult) (pediatric) Status: Acute DS: Summary Hospital Course Hospital Course: The patient presented to the emergency department for evaluation of increasing redness, pain, and swelling about the left breast 8 days post loop recorder insertion.. She has infection around the incision site. She was previously on levofloxacin however that is nOt the best antibiotic for her given her myasthenia gravis.? Cardiology has been consulted. Status post explantation off loop recorder.? Cultures growing Staph aureus.? Blood culture x2 no growth to date started on vancomycin and aztreonam.? Clindamycin sensitive. Tolerated clindamycin IV during the hospital stay which was started on 10/19/2022. With switched to oral clindamycin at discharge Wound Care started and will need to be continued as an outpatient basis. Home health will be arranged continue pyridostigmine for myasthenia gravis.? Asthma is controlled on maintenance inhaler. Vasovagal syncopal episode on 10/16/2022 telemetry during that time revealed sinus bradycardia.? Exacerbated by epigastric pain/nausea after she swallowed Mestinon.? Upper GI with findings of mild achalasia. ? She has this issue? chronically and will continue to follow-up with her regular plastics fabricator as an outpatient basis. She had history of esophageal dilatation in the past. Holter monitor in the past with 1 episode of SVT 130 beats per minute PACs and PVC burden of up to 1% Time Spent with Patient Time attestation: Total time spent providing and/or coordinating discharge services:45 mins Exam Narrative: General: Well-developed, nontoxic-appearing female sitting up in bed. HEENT: PERRL, EOMI. Sclera anicteric. Oral mucosa moist. Neck: Supple. Nontender Respiratory: Lungs are clear to auscultation bilaterally. Due to auscultation Cardiovascular: Regular rate and rhythm with S1-S2. Chest: Loop recorder insertion site with dressing on. Surrounding erythema, edema, warmth, and tenderness which extends just past the nipple and to the underside of the breast which continue to improve. Gastrointestinal: Abdomen is soft, nontender, and nondistended with positive bowel sounds. Skin: Warm and dry. Extremities: No cyanosis, clubbing, or edema. Radial and pedal pulses intact. Neurological: Alert. Cranial nerves 2-12 are grossly intact though she does have intermittent right lid lag. No facial asymmetry. No gross focal deficits to casual conversation. Psychiatric: Pleasant and cooperative with normal mood and affect. Judgment and insight intact. DS: Data Data Completed and Pending Labs on day of discharge: Labs from last 24 hours 10/21/22 05:30 WBC 6.5 RBC 4.15 L Hgb 12.9 Hct 39.6 MCV 95.4 MCH 31.1 MCHC 32.6 RDW 12.8 Plt Count 214 MPV 9.7 Immature Gran % (Auto) 0.5 Neut % (Auto) 60.7 Lymph % (Auto) 23.5 Larue % (Auto) 11.0 H Eos % (Auto) 3.4 Baso % (Auto) 0.9 Lymph # (Auto) 1.53 Larue # (Auto) 0.7 H Eos # (Auto) 0.2 Baso # (Auto) 0.1 Abs Immat Gran (auto) 0.03 Absolute Neuts (auto) 4.0 Absolute Nucleated RBC 0.0 Nu
== END 2022-10-21 15:40 | disposition home health service (06) | DRG 863 ==
LOC: ANHED 15:26 → ANH3MEDSUR 20:07
PROVIDERS: Internal Medicine; Internal Medicine Cardiovascular Disease; Physician Assistant; Admitting Provider Hospitalist; Emergency Provider Emergency Medicine; PCP Internal Medicine; Visit Provider Internal Medicine
PROC: 0WP80YZ Removal of Other Device from Chest Wall, Open Approach (ICD-10-PCS; CPT 33286; principal; 2022-10-16 07:30)
DX: T81.49XA Infection following a procedure, other surgical site, initial encounter (principal); N61.0 Mastitis without abscess; B95.62 Methicillin resistant Staphylococcus aureus infection as the cause of diseases classified elsewhere; J45.909 Unspecified asthma, uncomplicated; G47.33 Obstructive sleep apnea (adult) (pediatric); R00.0 Tachycardia, unspecified; K22.0 Achalasia of cardia; R55 Syncope and collapse; R00.1 Bradycardia, unspecified; G70.00 Myasthenia gravis without (acute) exacerbation; Z90.49 Acquired absence of other specified parts of digestive tract; Z95.818 Presence of other cardiac implants and grafts; Z90.710 Acquired absence of both cervix and uterus
CPT/HCPCS: 33286; 36415; 36600; 71045; 74240; 74250; 76642; 80048; 80053; 80202; 82565; 82805; 82948; 83605; 83735; 83880; 84100; 84484; 85025; 85027; 87040; 87070; 87147; 87181; 87186; 87205; 93005; 94640; 96365; 96367; 97110; 97116; 97161; 97166; 97530; 97535; 99285; A9270; J0457; J2250; J2310; J3010; J3370; J7040

== ENCOUNTER 2022-11-06 17:18 | Emergency (ER) | payer MEDICARE, OTHER, SELFPAY ==
[2022-11-06 17:20] VITALS: BP 166/80; PULSE 86; RESP 20; TEMP 36.6; O2SAT 99
[2022-11-06 18:30] VITALS: BP 116/80; PULSE 64; RESP 18; TEMP 36.6; O2SAT 99
--- NOTE | 2022-11-06 18:33 | ED.ALLEREA ---
HPI - Allergic Reaction General Chief complaint: Allergic Reaction Stated complaint: possible allergic reaction Time Seen by Provider: 11/06/22 18:33 Source: patient and family Mode of arrival: ambulatory Limitations: no limitations History of Present Illness HPI narrative: This is a 67-year-old female who presents with her has a history of cellulitis and was at her primaries office and received a injection of Rocephin and subsequent to that had started having some throat swelling and itching currently no rash no nausea vomiting no audible wheezing no fever chills. Patient has a history of myasthenia gravis and has history of cellulitis that she has been receiving clindamycin and today received a dose of Rocephin by her primary. MD complaint: allergic reaction Onset (ago): hour(s) Symptoms: itching and lip swelling Severity: mild Related Data Home Medications Medication Instructions Recorded Confirmed duloxetine 60 mg capsule,delayed 60 mg PO DAILY 09/07/20 10/15/22 release fluticasone furoate 200 1 inh inhalation DAILY 09/07/20 10/15/22 mcg-vilanterol 25 mcg/dose inhalation powder (Breo Ellipta) montelukast 10 mg tablet 10 mg PO DAILY 09/07/20 10/15/22 cholecalciferol (vitamin D3) 100 100 mcg PO DAILY 10/07/22 10/15/22 mcg (4,000 unit) tablet levalbuterol HCl 0.63 mg/3 mL 0.63 mg inhalation PRN PRN Wheezing 10/07/22 10/15/22 solution for nebulization omeprazole 20 mg tablet,delayed 20 mg PO DAILY 10/07/22 10/15/22 release Allergies Allergy/AdvReac Type Severity Reaction Status Date / Time Sulfa (Sulfonamide Allergy Mild Anaphylactic Verified 10/15/22 14:52 Antibiotics) Shock nortriptyline Allergy Unknown Confusion Verified 10/15/22 14:52 Penicillins Allergy Unknown Anaphylactic Verified 10/15/22 14:52 Shock tree nut Allergy Anaphylaxis Verified 10/16/22 09:31 codeine AdvReac Mild Nausea Verified 10/16/22 09:31 lowell Allergy Severe Anaphylaxis Uncoded 10/16/22 09:31 ORANGES Allergy Unknown Anaphylactic Uncoded 10/16/22 09:31 Shock Review of Systems Review of Systems: All systems reviewed & are unremarkable except as noted in HPI and below PMFSH Past Medical History Medical History Allergic rhinitis Asthma Myasthenia gravis Obstructive sleep apnea treated with BiPAP Vitamin D deficiency Surgical History Surgical History History of bladder suspension procedure History of cholecystectomy History of hysterectomy History of loop recorder History of tonsillectomy History of tubal ligation Family History Family History Mother Family history of diabetes mellitus in first degree relative, Onset Age: 55 Father Malignant neoplasm of prostate Patient's father is Social History Social History Social History: Surrogate medical decision maker: Miko Arrington, spouse. Code status: Full code. Smoking status: Never smoker Second hand tobacco smoke exposure: No Alcohol intake: never Substance use: never Substance use type: does not use Lack of Transportation: No Lack of Food: Never True Current Housing: I Have Housing Concerned About Future Housing: No Difficulty Paying Gas/Electric Bills: No Difficulty Paying for Meds: No Currently Unemployed: No Education: Bachelor's Degree Difficulty w/ Childcare or Family Care: No Living arrangements: with family Spiritual care concerns: No Exam Const: General: healthy appearing Nutritional Appearance: well nourished Orientation/consciousness: patient oriented x3 Limitations: no limitations HENMT: Head: normal to inspection Eyes: Conjunctivae: conjunctivae normal Pupils: Equal, round and reactive pupils present Neck: Neck: normal visual inspection and
== END 2022-11-06 18:52 | disposition home or self-care (01) ==
PROVIDERS: Emergency Provider Emergency Medicine; PCP Internal Medicine
DX: T78.40XA Allergy, unspecified, initial encounter (principal)
CPT/HCPCS: 99283; J1030

== ENCOUNTER 2022-12-24 10:22 | Outpatient (CLI) | payer MEDICARE, OTHER, SELFPAY ==
--- NOTE | ~2022-12-24 | US_ITS ---
US breast LT complete INDICATION: Left breast cellulitis TECHNIQUE: Dedicated left complete breast ultrasound including all 4 quadrants in the subareolar loca tion COMPARISON: Ultrasound dated 10/17/2022 FINDINGS: The left breast is composed of normal heterogeneous echotexture without focal solid or cyst ic mass. IMPRESSION: 1: Normal left breast ultrasound. BI-RADS CATEGORY 1 - NEGATIVE Reviewed, dictated and finalized at location A.
== END 2022-12-24 10:23 | disposition home or self-care (01) ==
LOC: CHSIMG 10:24
PROVIDERS: PCP Internal Medicine; Visit Provider Nurse Practitioner Family
DX: N64.4 Mastodynia (principal)
CPT/HCPCS: 76641

== ENCOUNTER 2023-02-19 09:07 | Outpatient (CLI) | payer MEDICARE, OTHER, SELFPAY ==
--- NOTE | 2023-03-23 11:07 | WPDHOLTEREM ---
Holter/Event Monitor Holter/Event Monitor Date of procedure: 02/19/23 Holter/Event Procedure: Event Monitor Indications: Syncope Conclusion: 1. 30 days event monitor between 02/19/23-03/20/23. This is an event trigger monitor only. There are 54 available transmissions for analysis. 2. Based on transmissions, underlying rhythm is sinus rhythm. HR range 53-95 bpm. 3. There are premature supraventricular complexes. No supraventricular tachycardia. 4. There are premature ventricular complexes. No ventricular tachycardia. 5. No significant pauses greater than 2 seconds. 6. Patient reports symptoms of chest pain, shortness of breath, lightheadedness, heart racing, and symptoms other than listed which demonstrated sinus rhythm, with 2 episodes with PAC's and 17 episodes with PVC's.
== END 2023-02-19 09:08 | disposition home or self-care (01) ==
PROVIDERS: PCP Internal Medicine
DX: R55 Syncope and collapse (principal)
CPT/HCPCS: 93270

== ENCOUNTER 2023-03-26 10:25 | Outpatient (CLI) | payer MEDICARE, OTHER, SELFPAY ==
--- NOTE | ~2023-03-26 | XR_ITS ---
EXAMINATION: XR chest 2V 03/26/2023 10:52 INDICATION: Cough, chest pain and shortness of breath PROCEDURE: 2 view chest COMPARISON: Comparison to multiple prior studies sequentially, with oldest reviewed study dated 04/2019. FINDINGS: The lungs are clear. The cardiomediastinal silhouette is within normal limits. There are no pleural effusions. There is no pneumothorax suspected. IMPRESSION: 1: NO ACUTE CARDIOPULMONARY DISEASE. Reviewed, dictated and finalized at location A. [employer]
[2023-03-26 10:51] LABS: Basophils Absolute Auto 0.04 K/mm3 (0.00-0.10); Basophils Percent Auto 0.7 % (0.0-1.0); Eosinophils Absolute Auto 0.07 K/mm3 (0.02-0.50); Eosinophils Percent Auto 1.1 % (1.0-6.0); Hematocrit 43.1 % (35.0-42.0); Hemoglobin 14.1 g/dL (11.7-13.8); Immature Granulocyte Absolute 0.03 K/mm3 (0.00-0.00); Immature Granulocyte Percent A 0.5 % (0.0-0.0); Lymphocytes Absolute Auto 1.93 K/mm3 (1.10-4.50); Lymphocytes Percent Auto 31.5 % (18.0-42.0); Mean Corpuscular HGB Conc 32.7 g/dL (32.0-36.0); Mean Corpuscular Volume 91.7 fL (78.0-102.0); Mean Platelet Volume 9.8 fl (9.2-11.8); Monocytes Absolute Auto 0.59 K/mm3 (0.10-0.90); Monocytes Percent Auto 9.6 % (2.0-11.0); Neutrophils Absolute Auto 3.5 K/mm3 (1.7-7.2); Neutrophils Percent Auto 56.6 % (50.0-70.0); Platelet Count Result 219 K/mm3 (150-420); White Blood Count 6.1 K/mm3 (4.8-10.8)
[2023-03-26 11:28] LABS: Alanine Aminotransferase 30 U/L (14-59); Albumin Level 3.7 g/dL (3.4-5.0); Alkaline Phosphatase 91 U/L (46-116); Anion Gap 7 mmol/L (8-16); Aspartate Amino Transferase 20 U/L (15-37); Bilirubin,Total 0.5 mg/dL (0.00-1.00); Blood Urea Nitrogen 9 mg/dL (7-18); Calcium 9.2 mg/dL (8.5-10.1); Carbon Dioxide 31 mmol/L (21-32); Chloride 98 mmol/L (98-108); Estimated Glomerular Filt Rate > 60; Glucose 97 mg/dL (70-99); Osmolality Calculated 280 mOsm/kg (285-295); Potassium 4.5 mmol/L (3.5-5.1); RSV RNA, RT-PCR Negative (Negative); SARS-CoV-2 RNA PCR Negative (Negative); Sodium 136 mmol/L (136-145); Total Protein 7.4 g/dL (6.4-8.2)
[2023-03-26 11:29] LABS: CRP < 0.5 mg/dL (0.0-0.9)
== END 2023-03-26 10:26 | disposition home or self-care (01) ==
LOC: CHSLAB 10:28
PROVIDERS: PCP Internal Medicine; Visit Provider Internal Medicine
DX: R05.9 Cough, unspecified (principal)
CPT/HCPCS: 36415; 71046; 80053; 85025; 86140; 87634; 87635

== ENCOUNTER 2023-07-02 06:36 | Outpatient (CLI) | payer MEDICARE, OTHER, SELFPAY ==
--- NOTE | 2023-07-04 16:48 | WPDNEUROLOGY ---
Neurology EEG Report General Information Date of Study: 07/02/23 TEST electroencephalogram DIAGNOSIS syncope and collapse CONDITION OF RECORDING neurology lab EEG NUMBER CLINICAL HISTORY The patient is a 68 years old with history of episodes of dizziness and at times loss of consciousness. Previous diagnosis of myasthenia gravis. List of medications not available. the patient was sleep deprived prior to this study EEG DESCRIPTION During wakefulness the background activity consists of posterior dominant alpha rhythm at 10 hertz with amplitude of 35-70 microvolts which appears well-formed and reactive to eye BP anteriorly low amplitude mixed frequency activity was seen. There is a good anteroposterior gradient. Hyperventilation was not performed. During drowsiness attenuation of background activity is seen. Patient did not progress to stage 2 sleep. Photic stimulation was performed during which no significant abnormal background changes were seen. No appreciable driving response was noted. IMPRESSION This is a normal EEG obtained during awake and drowsy states.
== END 2023-07-02 06:37 | disposition home or self-care (01) ==
PROVIDERS: PCP Internal Medicine
DX: R55 Syncope and collapse (principal)
CPT/HCPCS: 95819

== ENCOUNTER 2023-10-19 13:24 | Emergency (ER) | payer MEDICARE, OTHER, SELFPAY ==
--- NOTE | ~2023-10-19 | XR_ITS ---
EXAMINATION: XR chest 1V portable DATE: 10/19/2023 14:27 INDICATION: One week of shortness of breath and cough TECHNIQUE: frontal view of the chest was obtained. COMPARISON: Chest radiograph dated 03/26/2023 FINDINGS: The lungs remain clear with no focal airspace opacities, pulmonary edema, pleural effusion or pneumot horax. The cardiomediastinal silhouette is normal. IMPRESSION: 1. No acute cardiopulmonary disease. Reviewed, dictated and finalized at location A.
[2023-10-19 13:25] VITALS: BP 180/87; PULSE 93; RESP 22; TEMP 36.1; O2SAT 100
--- NOTE | 2023-10-19 13:33 | ED.GENADULT ---
HPI - General Adult General Chief complaint: Shortness of Breath/Dyspnea Stated complaint: shortness of breath Source: patient Mode of arrival: ambulatory Limitations: no limitations History of Present Illness HPI narrative: 68-year-old white female history of myasthenia gravis. A week ago with heat and humidity she noticed that her myasthenia gravis was getting worse feeling her lower ribs being squeezed in, difficulty swelling, and difficulty talking. She has had episodes like this but has not been this bad in the past. She has a road crossing guard in [place] and she called that physician who put her on 5 days of prednisone. Told her if it is not better call him back. She said it was 10% better having finished her prednisone yesterday. She called the doctor and he told her to call her primary care provider who told her to come to the emergency department. She also has fits of pain in her neck the last for about 20 seconds of some a touches her neck or if she gets in the wrong position this occurs anywhere from 0 to 3 times a day for at least the last year. She also relates this to her myasthenia gravis. She last saw her myasthenia gravis doctor in June and there has been no changes in her medications. She is supposed to be on long-acting Mestinon but that is not available. She is taking short-acting Mestinon equivalent amount of dose. Denies any cough chest pain she says she is more short of breath than usual. Denies any fever nausea vomiting she is eating but it is much more difficult to do so. Denies any rash or itching swelling lumps or bumps nausea vomiting diarrhea bleeding or bruising or any other complaints. Related Data Home Medications Medication Instructions Recorded Confirmed duloxetine 60 mg capsule,delayed 60 mg PO DAILY 09/07/20 10/19/23 release fluticasone furoate 200 1 inh inhalation DAILY 09/07/20 10/19/23 mcg-vilanterol 25 mcg/dose inhalation powder (Breo Ellipta) montelukast 10 mg tablet 10 mg PO DAILY 09/07/20 10/19/23 cholecalciferol (vitamin D3) 100 25 mcg PO DAILY 10/07/22 10/19/23 mcg (4,000 unit) tablet levalbuterol HCl 0.63 mg/3 mL 0.63 mg inhalation TID PRN Wheezing 10/07/22 10/19/23 solution for nebulization omeprazole 20 mg tablet,delayed 20 mg PO DAILY 10/07/22 10/19/23 release pyridostigmine bromide 180 mg 180 mg PO BID 10/19/23 10/19/23 tablet,extended release pyridostigmine bromide 60 mg tablet 120 mg PO QID 10/19/23 10/19/23 Allergies Allergy/AdvReac Type Severity Reaction Status Date / Time ceftriaxone [From Rocephin] Allergy Severe Difficulty Verified 10/19/23 13:56 Swallowing Sulfa (Sulfonamide Allergy Mild Anaphylactic Verified 10/19/23 13:56 Antibiotics) Shock nortriptyline Allergy Unknown Confusion Verified 10/19/23 13:56 Penicillins Allergy Unknown Anaphylactic Verified 10/19/23 13:56 Shock albuterol Allergy Unknown Verified 10/19/23 13:56 Cephalosporins Allergy Anaphylaxis Verified 10/19/23 13:56 tree nut Allergy Anaphylaxis Verified 10/19/23 13:56 codeine AdvReac Mild Nausea Verified 10/19/23 13:56 lowell Allergy Severe Anaphylaxis Uncoded 10/19/23 13:56 ORANGES Allergy Unknown Anaphylactic Uncoded 10/19/23 13:56 Shock cillins Allergy Anaphylaxis Uncoded 10/19/23 13:56 Review of Systems Review of Systems: All systems reviewed & are unremarkable except as noted in HPI and below PMFSH Past Medical History Medical History Allergic rhinitis Asthma Myasthenia gravis Obstructive sleep apnea treated with BiPAP Vitamin D deficiency Surgical History Surgical History History of bladder suspension procedure History of cholecystectomy History of hysterectomy History of loop recorder History of tonsillectomy History of tubal ligation Family History Family History Moth
--- NOTE | 2023-10-19 13:34 | ECG_ITS ---
Test Date: 2023-10-19 14:16:39 Measurements Intervals [place] Rate: 79 P: 60 MN: 135 QRS: -5 QRSD: 85 T: 73 QT: 356 QTc: 410 Interpretive Statements SINUS RHYTHM MODERATE ST DEPRESSION [0.05+ mV ST DEPRESSION] /CONSIDER INFERIOR ISCHEMIA ABNORMAL ECG No previous ECG available for comparison Electronically Signed On 10-19-2023 14:53:05 CDT by Chauncey Fabian M.D.
[2023-10-19 13:38] VITALS: O2SAT 100
[2023-10-19 13:45] VITALS: PULSE 75
[2023-10-19 13:48] VITALS: PULSE 80; RESP 16; O2SAT 100
[2023-10-19 13:52] VITALS: PULSE 83; RESP 16; O2SAT 100
[2023-10-19] MEDS: LEVALBUTEROL NEB 1.25 MG/3 ML INHALATION (13:56)
[2023-10-19 14:06] LABS: HCO3 ABG 25.5 mmol/L (23-29); Oxygen Content ABG 21.8 %vol (16.0-22.0); Oxygen Saturation ABG 99.3 % (95-97); Oxyhemoglobin 98.7 % (94-100); PCO2 ABG 29.9 mmHg (35-45); PO2 ABG 246.4 mmHg (75-85); pH ABG 7.55 (7.35-7.45)
[2023-10-19 14:07] LABS: Modified Allen's Test Pass; Site Drawn RIGHT RADIAL
[2023-10-19 14:08] LABS: Device SIMPLE MASK; Hematocrit 44.5 % (35.0-42.0); Hemoglobin 15.3 g/dL (11.7-13.8); Mean Corpuscular HGB Conc 34.4 g/dL (32-36); Mean Corpuscular Hemoglobin 31.1 pg (27.0-31.0); Mean Corpuscular Volume 90.4 fL (78.0-102.0); Mean Platelet Volume 9.6 fl (9.2-11.8); Platelet Count Result 265 K/mm3 (150-420); Red Blood Count 4.92 M/mm3 (4.20-5.40); Red Cell Distribution Width 12.2 % (11.6-14.4); White Blood Count 11.7 K/mm3 (4.8-10.8)
[2023-10-19 14:22] LABS: D Dimer 0.29 mg/L (0.19-0.50)
[2023-10-19 14:28] LABS: Alanine Aminotransferase 24 U/L (14-59); Albumin Level 4.1 g/dL (3.4-5.0); Alkaline Phosphatase 111 U/L (46-116); Anion Gap 10 mmol/L (4-12); Aspartate Amino Transferase 16 U/L (15-37); Bilirubin,Total 0.4 mg/dL (0.00-1.00); Blood Urea Nitrogen 13 mg/dL (7-18); Calcium 9.9 mg/dL (8.5-10.1); Carbon Dioxide 29 mmol/L (21-32); Chloride 97 mmol/L (98-108); Estimated CRCL calculation 53 ml/min; Estimated Glomerular Filt Rate > 60; Glucose 100 mg/dL (70-99); Osmolality Calculated 282 mOsm/kg (285-295); Potassium 3.7 mmol/L (3.5-5.1); Sodium 136 mmol/L (136-145); Total Protein 8.4 g/dL (6.4-8.2); Troponin I < 4.0 ng/L (0.00-60.4)
[2023-10-19 14:44] LABS: SARS-CoV-2 RNA PCR Negative (Negative)
[2023-10-19 14:45] LABS: Influenza A QL RT-PCR Negative (Negative); Influenza B QL RT-PCR Negative (Negative); RSV RNA, RT-PCR Negative (Negative)
[2023-10-19 15:48] VITALS: BP 135/69; PULSE 73; RESP 20; TEMP 36.8; O2SAT 100
--- NOTE | 2023-10-25 17:54 | PC.NURSE ---
FINAL BLOOD CULTURE REPORT: NO GROWTH AFTER 5 DAYS, NO FURTHER ACTION OR TREATMENT NEEDED.
--- NOTE | 2023-11-01 17:52 | PC.NURSE ---
final blood cultures x2 reviewed. no growth after 5 days. no change in plan of care.
== END 2023-10-19 15:52 | disposition home or self-care (01) ==
PROVIDERS: Emergency Provider Emergency Medicine; PCP Internal Medicine
DX: R06.02 Shortness of breath (principal); G70.00 Myasthenia gravis without (acute) exacerbation; Z79.899 Other long term (current) drug therapy; Z20.822 Contact with and (suspected) exposure to COVID-19
CPT/HCPCS: 36415; 36600; 71045; 80053; 82805; 83605; 84484; 85027; 85380; 87040; 87637; 93005; 94640; 99284